=== PATIENT | female | born 1985 | race Caucasian/White ===

== ENCOUNTER 2016-09-01 19:43 | Emergency (ER) | payer MEDICAID ==
[2016-09-01] MEDS ORDERED: IPRATROPIUM/ALBUTEROL 0.5-2.5 MG/3 ML AMPUL NEB ONE (19:51)
--- NOTE | 2016-09-01 19:53 | ER Document Report ---
ED Medical Screen (RME) - General Stated Complaint: FEVER/DIFFICULTY BREATHING Mode of Arrival: Ambulatory Information source: Patient Notes: She presents to the emergency department with complaints of cough shortness of breath chest pain when she coughs. Patient also reports fever. Reports fever on Saturday seemed to get better then returned on Saturday. Patient does have a history of asthma. Denies vomiting diarrhea. SOB with ambulation, no wheeze. I have greeted and performed a rapid initial assessment of this patient. A comprehensive ED assessment and evaluation of the patient, analysis of test results and completion of the medical decision making process will be conducted by additional ED providers. TRAVEL OUTSIDE OF THE [place] IN LAST 30 DAYS: No - Related Data Allergies/Adverse Reactions: ibuprofen [From Motrin] Allergy (Mild, Verified 07/29/15 07:58) Past Medical History - Past Medical History Cardiac Medical History: Reports: Hx Hypertension Denies: Hx Coronary Artery Disease, Hx Heart Attack Pulmonary Medical History: Reports: Hx Asthma, Hx Bronchitis, Hx Pneumonia - as a child Denies: Hx COPD Neurological Medical History: Denies: Hx Cerebrovascular Accident, Hx Seizures Musculoskeltal Medical History: Denies Hx Arthritis Skin Medical History: Reports Hx Cellulitis Psychiatric Medical History: Reports: Hx Depression Past Surgical History: Reports: Hx Cholecystectomy - Immunizations Immunizations up to date: Yes Hx Diphtheria, Pertussis, Tetanus Vaccination: Yes
[2016-09-01 20:11] LABS: ABSOLUTE BASOPHILS # (AUTO) 0.1 10^3/uL (0.0-0.2); ABSOLUTE EOSINOPHILS # (AUTO) 0.1 10^3/uL (0.0-0.6); ABSOLUTE LYMPHOCYTES (AUTO) 2.9 10^3/uL (0.5-4.7); ABSOLUTE MONOCYTES (AUTO) 0.9 10^3/uL (0.1-1.4); ABSOLUTE NEUT (AUTO) 7.5 10^3/uL (1.7-8.2); BASOPHILS % (AUTO) 0.7 % (0-2); HEMATOCRIT 43.1 % (36.0-47.0); HEMOGLOBIN 14.4 g/dL (12.0-15.5); HGB HCT DIFFERENCE 0.1; LYMPHOCYTES % (AUTO) 25.2 % (13-45); MEAN CORPUSCULAR HEMOGLOBIN 27.7 pg (27.0-33.4); MEAN CORPUSCULAR HGB CONC 33.4 g/dL (32.0-36.0); MEAN CORPUSCULAR VOLUME 83 fl (80-97); MONOCYTES % (AUTO) 7.7 % (3-13); RED CELL DISTRIBUTION WIDTH 13.9 % (11.5-14.0); SEGMENTED NEUTROPHILS % (AUTO) 65.4 % (42-78); WHITE BLOOD COUNT 11.4 10^3/uL (4.0-10.5)
[2016-09-01 20:25] LABS: ALANINE AMINOTRANSFERASE 34 U/L (9-52); ALBUMIN 4.3 g/dL (3.5-5.0); ALKALINE PHOSPHATASE 93 U/L (38-126); ANION GAP 13 (5-19); ASPARTATE AMINO TRANSFERASE 24 U/L (14-36); BILIRUBIN,TOTAL 0.7 mg/dL (0.2-1.3); BLOOD UREA NITROGEN 12 mg/dL (7-20); CALCIUM 9.4 mg/dL (8.4-10.2); CARBON DIOXIDE 23 mmol/L (22-30); CHLORIDE 105 mmol/L (98-107); CREATININE RESULT 0.84 mg/dL (0.52-1.25); GLUCOSE 103 mg/dL (75-110); POTASSIUM 4.1 mmol/L (3.6-5.0); SODIUM 140.9 mmol/L (137-145); TOTAL PROTEIN 7.2 g/dL (6.3-8.2)
[2016-09-01 21:24] VITALS: BP 143/87
[2016-09-01] MEDS ORDERED: BENZONATATE 100 MG CAPSULE PO ONE (21:25)
--- NOTE | 2016-09-01 21:25 | ER Document Report ---
ED Respiratory Problem - General Chief Complaint: Breathing Difficulty Stated Complaint: FEVER/DIFFICULTY BREATHING Time seen by provider: 21:22 Mode of Arrival: Ambulatory Information source: Patient TRAVEL OUTSIDE OF THE [place] IN LAST 30 DAYS: No - HPI Patient complains to provider of: Cough, Short of breath Onset: Other - 4 days Duration: Worse/persistent Initiating Event: URI Quality of pain: Achy Severity: Mild Pain Level: 2 Context: Hx asthma Short of Breath: Mild Chest pain/discomfort: Tightness Cough: Productive Sputum amount: Small Sputum color: Green Sputum consistency: Mucoid Associated symptoms: Congestion, Cough, Fever, Short of breath, Wheezing Similar symptoms previously: Yes Recently seen / treated by doctor: No Notes: Patient is a 30-year-old female presenting to the emergency room complaining of fever and productive cough 4 days, fever was 102 earlier today, cough is productive of greenish colored mucus, today she felt chest tightness as well, with difficulty breathing, states she has an albuterol inhaler at home as she has a history of asthma but does not have any nebulizer solution for her machine , patient reports several sick contacts in her family recently as well - Related Data Allergies/Adverse Reactions: ibuprofen [From Motrin] Allergy (Mild, Verified 07/29/15 07:58) Past Medical History - General Information source: Patient - Social History Smoking Status: Never Smoker Chew tobacco use (# tins/day): No Frequency of alcohol use: Rare Drug Abuse: None Family History: Reviewed & Not Pertinent Patient has suicidal ideation: No Patient has homicidal ideation: No - Past Medical History Cardiac Medical History: Reports: Hx Hypertension Denies: Hx Coronary Artery Disease, Hx Heart Attack Pulmonary Medical History: Reports: Hx Asthma, Hx Bronchitis, Hx Pneumonia - as a child Denies: Hx COPD Neurological Medical History: Denies: Hx Cerebrovascular Accident, Hx Seizures Renal/ Medical History: Denies: Hx Peritoneal Dialysis Musculoskeltal Medical History: Denies Hx Arthritis Skin Medical History: Reports Hx Cellulitis Psychiatric Medical History: Reports: Hx Depression Past Surgical History: Reports: Hx Cholecystectomy - Immunizations Immunizations up to date: Yes Hx Diphtheria, Pertussis, Tetanus Vaccination: Yes Hx Pneumococcal Vaccination: 05/30/12 Review of Systems - Review of Systems Constitutional: Fever EENT: No symptoms reported Cardiovascular: No symptoms reported Respiratory: See HPI Gastrointestinal: No symptoms reported Genitourinary: No symptoms reported Female Genitourinary: No symptoms reported Musculoskeletal: No symptoms reported Skin: No symptoms reported Hematologic/Lymphatic: No symptoms reported Neurological/Psychological: No symptoms reported -: Yes All other systems reviewed and negative Physical Exam - Vital signs Vitals: Temp Pulse Resp BP Pulse Ox 99.7 F 123 H 26 H 152/93 H 95 09/01/16 19:48 09/01/16 19:48 09/01/16 19:48 09/01/16 19:48 09/01/16 19:48 Interpretation: Normal - General General appearance: Appears well, Alert - HEENT Head: Normocephalic, Atraumatic Eyes: Normal Pupils: PERRL - Respiratory Respiratory status: No respiratory distress Chest status: Nontender Breath sounds: Normal Chest palpation: Normal - Cardiovascular Rhythm: Regular Heart sounds: Normal auscultation Murmur: No - Abdominal Inspection: Normal Distension: No distension Bowel sounds: Normal Tenderness: Nontender Organomegaly: No organomegaly - Back Back: Normal, Nontender - Extremities General upper extremity: Normal inspection, Nontender, Normal color, Normal ROM , Normal temperature General lower extremity: Normal inspection, Nontender, Normal color, Normal ROM , Normal temperature, Normal weight bearing. No: Saige's sign - Neurological Neuro grossly intact: Yes Cognition: Normal Orientation: AAOx4 Radha Coma Scale Eye Opening: Spontaneous Grant Coma Scale Verbal: Oriented Grant Coma Scale Motor: Obeys Commands Grant Coma Scale Total: 15 Speech: Normal Motor strength normal: LUE, RUE, LLE, RLE Sensory: Normal - Psychological Associated symptoms: Normal affect, Normal mood - Skin Skin Temperature: Warm Skin Moisture: Dry Skin Color: Normal Course - Re-evaluation Re-evalutation: 09/01/16 21:24 Lab and imaging findings were discussed with patient at bedside, symptoms are consistent with viral upper respiratory illness, she will be given a prescription for albuterol nebulizer treatments as well as cough suppressant medication, advised to follow-up with her primary care provider or return if symptoms worsen, patient acknowledges understanding and agreement with this plan - Vital Signs Vital signs: Temp Pulse Resp BP Pulse Ox 99.7 F 123 H 26 H 152/93 H 95 09/01/16 19:48 09/01/16 19:48 09/01/16 19:48 09/01/16 19:48 09/01/16 19:48 - Laboratory Result Diagrams: 09/01/16 19:56 09/01/16 19:56 Laboratory results interpreted by me: 09/01/16 19:56 WBC 11.4 H - Diagnostic Test Radiology reviewed: Image reviewed, Reports reviewed Discharge - Discharge Clinical Impression: Viral upper respiratory illness Condition: Stable Disposition: HOME, SELF-CARE Instructions: Upper Respiratory Illness ([facility]), Viral Syndrome ([facility]), Fever ([facility] ) Additional Instructions: Follow up with your primary care provider in one to 2 days. Return to the emergency room immediately if symptoms worsen or any additional concerns. Prescriptions: Benzonatate [Tessalon Perle 100 mg Capsule] 100 mg PO Q8HP PRN #40 cap PRN Reason: Albuterol Sulfate [Albuterol Sulfate 2.5mg/3 mL] 1 vial [facility] Q4 PRN #30 vial PRN Reason:
== END 2016-09-01 21:25 | disposition home or self-care (01) ==
LOC: ER 19:43
DX: J06.9 Acute upper respiratory infection, unspecified (principal); R50.9 Fever, unspecified; R06.02 Shortness of breath; R06.00 Dyspnea, unspecified; I10 Essential (primary) hypertension; Z90.49 Acquired absence of other specified parts of digestive tract; Z88.6 Allergy status to analgesic agent
CPT/HCPCS: 94640; 99285; 36415; 84703; 85025; 80053; 71020; J7620

== ENCOUNTER 2016-09-07 04:45 | Emergency (ER) | payer MEDICAID ==
[2016-09-07] MEDS ORDERED: IPRATROPIUM/ALBUTEROL 0.5-2.5 MG/3 ML AMPUL NEB ONE ×2 (06:31→07:38)
--- NOTE | 2016-09-07 06:36 | ER Document Report ---
ED General - General Chief Complaint: Breathing Difficulty Stated Complaint: DIFFICULTY BREATHING Mode of Arrival: Ambulatory Information source: Patient, [facility] Records Notes: 30-year-old female presents with complaints of cough shortness of breath and body aches. Patient notes that her cough initially started one half weeks ago was taken productive at that time was seen here and started on Tessalon Perles and albuterol, patient notes her cough improved and is now a dry cough with intermittent sticky green sputum. Patient admits to intermittent fevers TRAVEL OUTSIDE OF THE [place] IN LAST 30 DAYS: No - HPI Onset: Last week Onset/Duration: Intermittent Quality of pain: Achy Severity: Mild Pain Level: 1 Associated symptoms: Nonproductive cough, Productive cough, Fever Exacerbated by: Denies Relieved by: Denies Similar symptoms previously: Yes Recently seen / treated by doctor: Yes - Related Data Allergies/Adverse Reactions: ibuprofen [From Motrin] Allergy (Mild, Verified 07/29/15 07:58) Past Medical History - Social History Smoking Status: Never Smoker Cigarette use (# per day): No Chew tobacco use (# tins/day): No Smoking Education Provided: No Frequency of alcohol use: Rare Drug Abuse: None Family History: Reviewed & Not Pertinent Patient has suicidal ideation: No Patient has homicidal ideation: No - Past Medical History Cardiac Medical History: Reports: Hx Hypertension Denies: Hx Coronary Artery Disease, Hx Heart Attack Pulmonary Medical History: Reports: Hx Asthma, Hx Bronchitis, Hx Pneumonia - as a child Denies: Hx COPD Neurological Medical History: Denies: Hx Cerebrovascular Accident, Hx Seizures Renal/ Medical History: Denies: Hx Peritoneal Dialysis Musculoskeltal Medical History: Denies Hx Arthritis Skin Medical History: Reports Hx Cellulitis Psychiatric Medical History: Reports: Hx Depression Past Surgical History: Reports: Hx Cholecystectomy - Immunizations Immunizations up to date: Yes Hx Diphtheria, Pertussis, Tetanus Vaccination: Yes Hx Pneumococcal Vaccination: 05/30/12 Review of Systems - Review of Systems Notes: REVIEW OF SYSTEMS: CONSTITUTIONAL : Admits fever EENT: Denies eye, ear, throat, or mouth pain or symptoms. Denies nasal or sinus congestion or discharge. Denies throat, tongue, or mouth swelling or difficulty swallowing. CARDIOVASCULAR: Denies chest pain. Denies palpitations or racing or irregular heart beat. Denies ankle edema. RESPIRATORY: Admits cough GASTROINTESTINAL: Denies abdominal pain or distention. Denies nausea, vomiting , or diarrhea. Denies blood in vomitus, stools, or per rectum. Denies black, tarry stools. Denies constipation. GENITOURINARY: Denies difficulty urinating, painful urination, burning, frequency, blood in urine, or discharge. FEMALE GENITOURINARY: Denies vaginal bleeding, heavy or abnormal periods, irregular periods. Denies vaginal discharge or odor. MUSCULOSKELETAL: Denies back or neck pain or stiffness. Denies joint pain or swelling. SKIN: Denies rash, lesions or sores. HEMATOLOGIC : Denies easy bruising or bleeding. LYMPHATIC: Denies swollen, enlarged glands. NEUROLOGICAL: Denies confusion or altered mental status. Denies passing out or loss of consciousness. Denies dizziness or lightheadedness. Denies headache. Denies weakness or paralysis or loss of use of either side. Denies problems with gait or speech. Denies sensory loss, numbness, or tingling. Denies seizures. PSYCHIATRIC: Denies anxiety or stress. Denies depression, suicidal ideation, or homicidal ideation. ALL OTHER SYSTEMS REVIEWED AND NEGATIVE. Dictation was performed using [employer] voice recognition software PHYSICAL EXAMINATION: GENERAL: Well-appearing, well-nourished and in no acute distress. HEAD: Atraumatic, normocephalic. EYES: Pupils equal round and reactive to light, extraocular movements intact, conjunctiva are normal. ENT: Nares patent, oropharynx clear without exudates. Moist mucous membranes. NECK: Normal range of motion, supple without lymphadenopathy LUNGS: Rhonchorous right upper lobe HEART: Regular rate and rhythm without murmurs ABDOMEN: Soft, nontender, nondistended abdomen. No guarding, no rebound. No masses appreciated. Female : deferred Musculoskeletal: Normal range of motion, no pitting or edema. No cyanosis. NEUROLOGICAL: Cranial nerves grossly intact. Normal speech, normal gait. Normal sensory, motor exams PSYCH: Normal mood, normal affect. SKIN: Warm, Dry, normal turgor, no rashes or lesions noted. Physical Exam - Vital signs Vitals: Temp Pulse Resp BP Pulse Ox 98.4 F 102 H 20 147/103 H 97 09/07/16 05:01 09/07/16 05:01 09/07/16 05:01 09/07/16 05:01 09/07/16 05:01 Course - Re-evaluation Re-evalutation: 09/07/16 06:35 Chest x-ray influenza are pending, patient will be given yet another DuoNeb here. Given length of symptoms I believe a course of steroids versus antibiotics would be appropriate depending on imaging 09/07/16 07:33 Patient looks well x-ray notes no acute abnormality however given the length of patient's productive cough I will start on antibiotics and steroids with close follow-up I have very low risk for DVT or PE After performing a Medical Screening Examination, I estimate there is LOW risk for ACUTE CORONARY SYNDROME, RESPIRATORY FAILURE, SEPSIS OR MENINGITIS, thus I consider the discharge disposition reasonable. The patient and I have discussed the diagnosis and risks, and we agree with discharging home with close follow- up. We also discussed returning to the Emergency Department immediately if new or worsening symptoms occur. We have discussed the symptoms which are most concerning (e.g., changing or worsening pain, trouble swallowing or breathing, neck stiffness, fever) that necessitate immediate return. - Vital Signs Vital signs: Temp Pulse Resp BP Pulse Ox 98.4 F 102 H 20 147/103 H 97 09/07/16 05:01 09/07/16 05:01 09/07/16 05:01 09/07/16 05:01 09/07/16 05:01 - Diagnostic Test Radiology reviewed: Image reviewed, Reports reviewed Discharge - Discharge Clinical Impression: Productive cough Condition: Stable Disposition: HOME, SELF-CARE Instructions: Pneumonia ([facility]) Prescriptions: Levofloxacin [Levaquin 750 mg Tablet] 750 mg PO DAILY #5 tablet Prednisone [Deltasone 20 mg Tablet] 3 tab PO DAILY 5 Days Referrals: CASSIE SHARPE DO [Primary Care Provider] - Follow up in 3-5 days
[2016-09-07] MEDS ORDERED: PREDNISONE 20 MG TABLET PO ONE (07:38)
[2016-09-07 08:14] VITALS: BP 138/66
== END 2016-09-07 08:18 | disposition home or self-care (01) ==
LOC: ER 04:45
DX: R05 Cough (principal); R06.00 Dyspnea, unspecified; R06.02 Shortness of breath; M79.1 Myalgia; I10 Essential (primary) hypertension; Z90.49 Acquired absence of other specified parts of digestive tract
CPT/HCPCS: 94640 ×2; 99285; 87804; 71020; J7512; J7620

== ENCOUNTER 2019-01-25 14:38 | Emergency (ER) | payer SELFPAY ==
--- NOTE | 2019-01-25 16:05 | ER Document Report ---
ED Medical Screen (RME) - General Chief Complaint: Swelling of Lower Extremity Stated Complaint: LEG PAIN Time Seen by Provider: 01/25/19 15:55 Primary Care Provider: CASSIE SHARPE DO [Primary Care Provider] - Follow up as needed TRAVEL OUTSIDE OF THE [place] IN LAST 30 DAYS: No - HPI Notes: 01/25/19 16:00 Patient is a 33-year-old female with a history of injury and skin grafting to her left lower leg who presents complaining of noticing cloudy drainage from the anterior mid corcoran area over the past 1 day, but had clear discharge x2-3 days. Patient states that she was running a fever yesterday. She also has redness and pain to her dorsal foot without any break in the skin in that area which began today. She is able to eat and drink without difficulty otherwise. She is urinating normally. Patient states that she normally has swelling to her bilateral lower extremities. She has no posterior leg pain. No h/o DVT. Denies DAVIS, fever, neck pain, URI, CP, SOB, Abd pain, dysuria, back pain, or rash. I have treated and performed a rapid initial assessment of this patient. A comprehensive ED assessment and evaluation of the patient, analysis of test results and completion of medical decision making process will be conducted by additional ED providers. PHYSICAL EXAMINATION: GENERAL: Well-appearing, well-nourished and in no acute distress. A&Ox4. Answers questions appropriately. LUNGS: Breath sounds clear to auscultation bilaterally and equal. No wheezes rales or rhonchi. HEART: Regular rate and rhythm without murmurs, rubs, gallops. Extremities: 1-2+ pitting edema b/l LE's, left slightly more than the right more so in the foot. The foot also has an area of erythema, warmth, and tenderness. Pulse 2+. The left lower leg has clear to cloudy discharge from old surgical scar w/o obvious fluctuance or abscess. NEUROLOGICAL: Normal speech, normal gait. PSYCH: Normal mood, normal affect. - Related Data Allergies/Adverse Reactions: ibuprofen [From Motrin] Allergy (Mild, Verified 01/25/19 14:40) Past Medical History - Past Medical History Cardiac Medical History: Reports: Hx Hypertension Denies: Hx Coronary Artery Disease, Hx Heart Attack Pulmonary Medical History: Reports: Hx Asthma, Hx Bronchitis, Hx Pneumonia - as a child Denies: Hx COPD Neurological Medical History: Denies: Hx Cerebrovascular Accident, Hx Seizures Renal/ Medical History: Denies: Hx Peritoneal Dialysis Musculoskeltal Medical History: Denies Hx Arthritis Skin Medical History: Reports Hx Cellulitis Psychiatric Medical History: Reports: Hx Depression Past Surgical History: Reports: Hx Cholecystectomy - Immunizations Immunizations up to date: Yes Hx Diphtheria, Pertussis, Tetanus Vaccination: Yes Physical Exam - Vital signs Vitals: Temp Pulse Resp BP Pulse Ox 98.8 F 103 H 18 159/118 H 96 01/25/19 14:48 01/25/19 14:48 01/25/19 14:48 01/25/19 14:48 01/25/19 14:48 Course - Vital Signs Vital signs: Temp Pulse Resp BP Pulse Ox 97.9 F 115 H 18 117/65 97 01/25/19 15:09 01/25/19 15:09 01/25/19 15:09 01/25/19 15:09 01/25/19 15:09 Doctor's Discharge - Discharge Referrals: CASSIE SHARPE DO [Primary Care Provider] - Follow up as needed
[2019-01-25 16:33] LABS: ABSOLUTE MONOCYTES (AUTO) 0.7 10^3/uL (0.1-1.4); ABSOLUTE NEUT (AUTO) 5.7 10^3/uL (1.7-8.2); BASOPHILS % (AUTO) 0.4 % (0-2); EOSINOPHILS % (AUTO) 0.6 % (0-6); HEMATOCRIT 42.2 % (36.0-47.0); HEMOGLOBIN 14.4 g/dL (12.0-15.5); LYMPHOCYTES % (AUTO) 13.5 % (13-45); MEAN CORPUSCULAR HGB CONC 34.1 g/dL (32.0-36.0); MEAN CORPUSCULAR VOLUME 85 fl (80-97); MONOCYTES % (AUTO) 9.4 % (3-13); PLATELET COUNT 246 10^3/uL (150-450); RED BLOOD COUNT 4.95 10^6/uL (3.72-5.28); RED CELL DISTRIBUTION WIDTH 14.8 % (11.5-14.0); SEGMENTED NEUTROPHILS % (AUTO) 76.1 % (42-78); TOTAL CELLS COUNTED % (AUTO) 100 %; WHITE BLOOD COUNT 7.5 10^3/uL (4.0-10.5)
[2019-01-25 16:54] LABS: ANION GAP 7 (5-19); BLOOD UREA NITROGEN 14 mg/dL (7-20); CALCIUM 9.4 mg/dL (8.4-10.2); CARBON DIOXIDE 29 mmol/L (22-30); CHLORIDE 105 mmol/L (98-107); GLUCOSE 98 mg/dL (75-110); POTASSIUM 4.3 mmol/L (3.6-5.0); SODIUM 141.4 mmol/L (137-145)
[2019-01-25] MEDS ORDERED: CLINDAMYCIN PHOSPHATE INJ 300 MG/2 ML SDV IM ONE ×2 (18:59→19:41)
[2019-01-25] MEDS ORDERED: CLINDAMYCIN HCL 150 MG CAPSULE PO ONE (19:41)
--- NOTE | 2019-01-25 20:13 | ER Document Report ---
ED General - General Chief Complaint: Swelling of Lower Extremity Stated Complaint: LEG PAIN Time Seen by Provider: 01/25/19 15:55 Primary Care Provider: CASSIE SHARPE DO [NO LOCAL MD] - Follow up as needed TRAVEL OUTSIDE OF THE [place] IN LAST 30 DAYS: No - HPI Notes: Patient is a 33-year-old female presents emergency department for evaluation of drainage from her left leg. She has a history of a hematoma that had required wound care and skin grafting. She states that over the last 3 days she has had some drainage from the area. At first it sounded serous, now she seems to have purulent drainage. She states 24 hours ago she did have a fever. She is had no nausea or vomiting. She denies any new injury to the area. She has permanent discoloration in that region, which she states is unchanged. While waiting here in the emergency department, however, she did notice some splotchy redness proximal to this wound. She states this is new. She also states that the s welling in her foot is not new, but she has noticed "red dots" that were more concerning to her as well. - Related Data Allergies/Adverse Reactions: ibuprofen [From Motrin] Allergy (Mild, Verified 01/25/19 14:40) Past Medical History - General Information source: Patient - Social History Smoking Status: Former Smoker Frequency of alcohol use: None Drug Abuse: None Family History: Reviewed & Not Pertinent Patient has suicidal ideation: No Patient has homicidal ideation: No - Past Medical History Cardiac Medical History: Reports: Hx Hypertension Denies: Hx Coronary Artery Disease, Hx Heart Attack Pulmonary Medical History: Reports: Hx Asthma, Hx Bronchitis, Hx Pneumonia - as a child Denies: Hx COPD Neurological Medical History: Denies: Hx Cerebrovascular Accident, Hx Seizures Renal/ Medical History: Denies: Hx Peritoneal Dialysis Musculoskeletal Medical History: Denies Hx Arthritis Skin Medical History: Reports Hx Cellulitis Psychiatric Medical History: Reports: Hx Depression Past Surgical History: Reports: Hx Cholecystectomy, Hx Orthopedic Surgery - left lower leg - Immunizations Immunizations up to date: Yes Hx Diphtheria, Pertussis, Tetanus Vaccination: Yes Hx Pneumococcal Vaccination: 05/30/12 Review of Systems - Review of Systems Constitutional: See HPI EENT: No symptoms reported Cardiovascular: No symptoms reported Respiratory: No symptoms reported Gastrointestinal: No symptoms reported Genitourinary: No symptoms reported Musculoskeletal: See HPI Skin: See HPI Neurological/Psychological: No symptoms reported Physical Exam - Vital signs Vitals: Temp Pulse Resp BP Pulse Ox 98.8 F 103 H 18 159/118 H 96 01/25/19 14:48 01/25/19 14:48 01/25/19 14:48 01/25/19 14:48 01/25/19 14:48 - Notes Notes: Vital signs reviewed, please refer to chart. Head is normocephalic, atraumatic. Pupils equal round, reactive to light. Neck is supple without meningismus. Heart is regular rate and rhythm. Lungs are clear to auscultation bilaterally. Abdomen is soft, nontender, normoactive bowel sounds throughout. Extremities without cyanosis, clubbing. Posterior calves are nontender. Examination of the left lower extremity yields 3+ edema, worse in the foot. She does have what appears to be petechia noted on the anterior aspect of the foot. She has a 3 cm scabbed wound to the anterior corcoran, the surrounding chronic appearing ecchymosis. She has 2+ pitting edema throughout the pretibial region. I do not appreciate any fluctuance at this time. She does have some diffuse, not well demarcated erythema tracking from the most cephalad aspect of the wound into the medial aspect of the knee. Course - Re-evaluation Re-evalutation: 01/25/19 20:08 Patient presents emergency department for evaluation. She had initial laboratory investigations and orders as placed through triage. On arrival the patient was tachycardic. My strong suspicion is this is secondary to deconditioning and heat. Her heart rate at the time of my evaluation was 80. Laboratory investigations revealed no significant leukocytosis. She denies any signs of DVT. Differential at this time would be cellulitis secondary to this wound, likely staph or strep. Patient was administered IM clindamycin, given a pill to go home with tonight. She is to follow-up closely with primary care. Unfortunately she does not see primary care at this time, [facility] She is also to follow-up with Dr. Ritter, who is down her wound care in the past. She voiced understanding to this. She was given strict instructions in regards to returning, including fever greater than 24 hours, Nausea or vomiting, increased red streaking. She voiced understanding to this and was discharged. 01/25/19 20:40 Nursing at discharge that the patient's blood pressure was markedly elevated. I did go back in to reevaluate the patient. We discussed elevated blood pressure, the risk factors associated with it, the need for this to be followed up. She voiced understanding. She was visibly chilled, and I did check her temperature. She was 102.1 orally. She was administered Tylenol. We did discuss possible options. She clearly has a source of infection. Her heart rate is in the 90s. She does not have a leukocytosis at this point, but argument could certainly be made for admission to the hospital. The patient states she does not want to be admitted at this time. She would rather do a trial of outpatient antibiotics at home. She was given strict instructions that if her fever continue tomorrow afternoon, she develops increased redness, vomiting, or any other new concerning symptoms of any time, she needs to return immediately to the emergency department for evaluation. She voiced understanding to this and was discharged. - Vital Signs Vital signs: Temp Pulse Resp BP Pulse Ox 99.4 F 98 18 220/110 H 99 01/25/19 20:31 01/25/19 20:31 01/25/19 20:31 01/25/19 20:31 01/25/19 20:31 - Laboratory Result Diagrams: 01/25/19 16:12 01/25/19 16:12 Laboratory results interpreted by me: 01/25/19 16:12 RDW 14.8 H Discharge - Discharge Clinical Impression: Cellulitis Qualifiers: Site of cellulitis: extremity Site of cellulitis of extremity: lower extremity Laterality: left Qualified Code(s): L03.116 - Cellulitis of left lower limb Condition: Stable Disposition: HOME, SELF-CARE Instructions: Cellulitis ([facility]) Additional Instructions: Take antibiotic as prescribed, starting with the 1 pill tonight before bed. Fill your prescription first thing tomorrow and take it all as directed. Follow-up with Dr. Ritter in primary care. If you develop fever longer than 24 hours, nausea and vomiting, increased redness, or any other new concerning symptoms, return immediately to the emergency department for reevaluation. Prescriptions: Clindamycin HCl 300 mg PO TID #30 capsule Referrals: CASSIE SHARPE DO [NO LOCAL MD] - Follow up as needed
[2019-01-25 20:32] VITALS: BP 220/110
[2019-01-25] MEDS ORDERED: ACETAMINOPHEN 325 MG TABLET PO ONE (20:37)
[2019-01-25] MEDS ORDERED: ACETAMINOPHEN 325 MG TABLET ONE (20:38)
== END 2019-01-25 20:42 | disposition home or self-care (01) ==
LOC: ER 14:38
DX: L03.116 Cellulitis of left lower limb (principal); I10 Essential (primary) hypertension; J45.909 Unspecified asthma, uncomplicated; R00.0 Tachycardia, unspecified; Z98.890 Other specified postprocedural states; Z88.8 Allergy status to other drugs, medicaments and biological substances; Z87.891 Personal history of nicotine dependence; R68.83 Chills (without fever)
CPT/HCPCS: 99283; 96372; 36415; 85025; 80048; J3490

== ENCOUNTER 2019-01-26 14:02 | Observation (INO) | payer SELFPAY ==
--- NOTE | 2019-01-26 15:48 | ER Document Report ---
ED Medical Screen (RME) - General Chief Complaint: Leg Swelling Stated Complaint: LEFT LEG PAIN Time Seen by Provider: 01/26/19 15:43 Primary Care Provider: EBONI STONE [Primary Care Provider] - Follow up as needed Mode of Arrival: Ambulatory Information source: Patient Notes: 33-year-old female presented to ED for complaint of increase in pain and redness to her left leg. She states she was seen yesterday by 1 of the providers given some IV and p.o. antibiotics and that her leg is getting more swollen and red overnight. Patient is alert oriented respirations regular and unlabored speaking in full sentences. She does have several red petechial areas to the left leg as well as 3+ edema. It is very tender to palpation. Patient is alert oriented respirations regular and unlabored speaking in full sentences. I have greeted and performed a rapid initial assessment of this patient. A comprehensive ED assessment and evaluation of the patient, analysis of test results and completion of medical decision making process will be conducted by an additional ED providers. Dictation of this chart was performed using voice recognition software; therefore, there may be some unintended grammatical errors. TRAVEL OUTSIDE OF THE [place] IN LAST 30 DAYS: No - Related Data Allergies/Adverse Reactions: ibuprofen [From Motrin] Allergy (Mild, Verified 01/26/19 14:22) Past Medical History - Past Medical History Cardiac Medical History: Reports: Hx Hypertension Denies: Hx Coronary Artery Disease, Hx Heart Attack Pulmonary Medical History: Reports: Hx Asthma, Hx Bronchitis, Hx Pneumonia - as a child Denies: Hx COPD Neurological Medical History: Denies: Hx Cerebrovascular Accident, Hx Seizures Renal/ Medical History: Denies: Hx Peritoneal Dialysis Musculoskeltal Medical History: Denies Hx Arthritis Skin Medical History: Reports Hx Cellulitis Psychiatric Medical History: Reports: Hx Depression Past Surgical History: Reports: Hx Cholecystectomy, Hx Orthopedic Surgery - left lower leg - Immunizations Immunizations up to date: Yes Hx Diphtheria, Pertussis, Tetanus Vaccination: Yes Physical Exam - Vital signs Vitals: Temp Pulse Resp BP Pulse Ox 98.9 F 98 18 182/94 H 96 01/26/19 15:11 01/26/19 15:11 01/26/19 15:11 01/26/19 15:11 01/26/19 15:11 Course - Vital Signs Vital signs: Temp Pulse Resp BP Pulse Ox 98.9 F 98 18 182/94 H 96 01/26/19 15:11 01/26/19 15:11 01/26/19 15:11 01/26/19 15:11 01/26/19 15:11 Doctor's Discharge - Discharge Referrals: LOCALMD,NO [Primary Care Provider] - Follow up as needed
[2019-01-26 16:31] LABS: ABSOLUTE LYMPHOCYTES (AUTO) 1.7 10^3/uL (0.5-4.7); ABSOLUTE MONOCYTES (AUTO) 0.8 10^3/uL (0.1-1.4); ABSOLUTE NEUT (AUTO) 4.5 10^3/uL (1.7-8.2); BASOPHILS % (AUTO) 0.3 % (0-2); EOSINOPHILS % (AUTO) 0.7 % (0-6); HEMATOCRIT 44.2 % (36.0-47.0); HEMOGLOBIN 14.8 g/dL (12.0-15.5); LYMPHOCYTES % (AUTO) 23.9 % (13-45); MEAN CORPUSCULAR HEMOGLOBIN 28.7 pg (27.0-33.4); MEAN CORPUSCULAR HGB CONC 33.5 g/dL (32.0-36.0); MEAN CORPUSCULAR VOLUME 86 fl (80-97); MONOCYTES % (AUTO) 11.3 % (3-13); PLATELET COUNT 240 10^3/uL (150-450); RED BLOOD COUNT 5.15 10^6/uL (3.72-5.28); RED CELL DISTRIBUTION WIDTH 14.7 % (11.5-14.0); SEGMENTED NEUTROPHILS % (AUTO) 63.8 % (42-78); TOTAL CELLS COUNTED % (AUTO) 100 %
[2019-01-26 16:41] LABS: APPEARANCE,URINE CLOUDY; BILIRUBIN,URINE NEGATIVE (NEGATIVE); COLOR,URINE YELLOW; GLUCOSE, URINE NEGATIVE (NEGATIVE); KETONES,URINE NEGATIVE (NEGATIVE); LEUKOCYTE ESTERASE,URINE NEGATIVE (NEGATIVE); NITRITE,URINE NEGATIVE (NEGATIVE); PROTEIN,URINE 30 mg/dL (NEGATIVE); URINE SPECIFIC GRAVITY 1.025
[2019-01-26 16:42] LABS: AMORPHOUS SEDIMENT,URINE TRACE /HPF
[2019-01-26 16:58] LABS: ALANINE AMINOTRANSFERASE 31 U/L (9-52); ALBUMIN 4.1 g/dL (3.5-5.0); ALKALINE PHOSPHATASE 100 U/L (38-126); ANION GAP 11 (5-19); ASPARTATE AMINO TRANSFERASE 27 U/L (14-36); BILIRUBIN,DIRECT 0.3 mg/dL (0.0-0.4); BILIRUBIN,TOTAL 0.5 mg/dL (0.2-1.3); BLOOD UREA NITROGEN 13 mg/dL (7-20); CALCIUM 9.3 mg/dL (8.4-10.2); CARBON DIOXIDE 27 mmol/L (22-30); CHLORIDE 103 mmol/L (98-107); GLUCOSE 89 mg/dL (75-110); POTASSIUM 4.3 mmol/L (3.6-5.0); TOTAL PROTEIN 7.5 g/dL (6.3-8.2)
--- NOTE | 2019-01-26 18:30 | ER Document Report ---
ED General - General Chief Complaint: Leg Swelling Stated Complaint: LEFT LEG PAIN Time Seen by Provider: 01/26/19 15:43 Primary Care Provider: EBONI STONE [NO LOCAL MD] - Follow up as needed Mode of Arrival: Ambulatory TRAVEL OUTSIDE OF THE [place] IN LAST 30 DAYS: No - HPI Notes: 33-year-old female to the emergency department with complaints of progressively worsening left leg redness, pain that began several days ago and has gotten worse in the past 24 hours. She states that she has had a fever measured at 101 and 102 at home predominantly at night. She was seen here yesterday for the cellulitis and was treated with clindamycin. She was told to return if her symptoms worsened. At that time there is just redness to the top of the foot but today she has redness all to the back of the calf and some to the front of the lower leg. She states that she has taken 2 doses of clindamycin today. States that she was told by the ER attending who saw her yesterday that she should return if the redness got any worse. She has an old scar to the front of her left lower leg from a skin graft that vascular surgeon in [place] performed in 2016. She does state that by vascular surgeon put in a left femoral artery stent because she had narrowing. She states that she is not on any elevated cholesterol medicine. She does not take any aspirin. She states that she does not have a history of peripheral artery disease. She reports that she is on control. She has not had recent travel. She is no history of DVT in her leg. No recent surgeries. - Related Data Allergies/Adverse Reactions: ibuprofen [From Motrin] Allergy (Mild, Verified 01/26/19 14:22) Past Medical History - General Information source: Patient - Social History Smoking Status: Never Smoker Frequency of alcohol use: None Drug Abuse: None Family History: Reviewed & Not Pertinent Patient has suicidal ideation: No Patient has homicidal ideation: No - Past Medical History Cardiac Medical History: Reports: Hx Hypertension Denies: Hx Coronary Artery Disease, Hx Heart Attack Pulmonary Medical History: Reports: Hx Asthma, Hx Bronchitis, Hx Pneumonia - as a child Denies: Hx COPD Neurological Medical History: Denies: Hx Cerebrovascular Accident, Hx Seizures Renal/ Medical History: Denies: Hx Peritoneal Dialysis Musculoskeletal Medical History: Denies Hx Arthritis Skin Medical History: Reports Hx Cellulitis Psychiatric Medical History: Reports: Hx Depression Past Surgical History: Reports: Hx Cholecystectomy, Hx Orthopedic Surgery - left lower leg - Immunizations Immunizations up to date: Yes Hx Diphtheria, Pertussis, Tetanus Vaccination: Yes Hx Pneumococcal Vaccination: 05/30/12 Review of Systems - Review of Systems Constitutional: Chills, Fever EENT: No symptoms reported Cardiovascular: denies: Chest pain, Palpitations Respiratory: denies: Cough, Short of breath Gastrointestinal: denies: Abdominal pain, Diarrhea, Nausea, Vomiting Genitourinary: denies: Burning, Frequency, Flank pain, Hematuria Musculoskeletal: Leg swelling - Left lower leg swelling Skin: Change in color - Progressively worsening redness to the left lower extre mity Hematologic/Lymphatic: denies: Blood clots, Easy bleeding, Easy bruising Neurological/Psychological: No symptoms reported -: Yes All other systems reviewed and negative Physical Exam - Vital signs Vitals: Temp Pulse Resp BP Pulse Ox 98.9 F 98 18 182/94 H 96 01/26/19 15:11 01/26/19 15:11 01/26/19 15:11 01/26/19 15:11 01/26/19 15:11 Interpretation: Hypertensive - General General appearance: Appears well In distress: None - HEENT Head: Normocephalic, Atraumatic Eyes: Normal Pupils: PERRL - Respiratory Respiratory status: No respiratory distress Chest status: Nontender Breath sounds: Normal Chest palpation: Normal - Cardiovascular Rhythm: Regular Heart sounds: Normal auscultation Murmur: No - Abdominal Inspection: Normal Distension: No distension Bowel sounds: Normal Tenderness: Nontender Organomegaly: No organomegaly - Back Back: Normal, Nontender - Extremities General upper extremity: Normal inspection, Nontender General lower extremity: Tender, Edema. No: Normal color - There is significant edema, erythema and tenderness to palpation over the left lower extremity. There is a noted 3 x 3 cm erythematous area to the dorsum of the left foot and then the erythema extends from the heel of the left foot up to the level of the popliteal fossa and wraps around to either side of the leg just below the knee. There is a chronic area of ecchymosis from where patient had skin grafting. There is a mild opening there but with no braulio purulent discharge. There is no fluctuance or evidence of abscess. With Doppler, DP pulses are intact and equal. She has 2+ pitting edema to the left lower extremity. - Neurological Neuro grossly intact: Yes Cognition: Normal Orientation: AAOx4 Radha Coma Scale Eye Opening: Spontaneous Radha Coma Scale Verbal: Oriented [place] Coma Scale Motor: Obeys Commands [place] Coma Scale Total: 15 Speech: Normal Motor strength normal: LUE, RUE, LLE, RLE Sensory: Normal - Psychological Associated symptoms: Normal affect, Normal mood - Skin Skin Temperature: Warm Skin Moisture: Dry Skin Color: Erythema - See extremity for discussion on left lower extremity erythema, edema, tenderness Course - Re-evaluation Re-evalutation: 01/26/[address] Vy Winter, ER Attending. She agrees that if patient has rapidly progressing erythema in the past 24 hours, that she likely needs admission for IV Abx. Agrees with plan to Venous Doppler. Will also have US look at her arterial supply. Noted PVL study negative for DVT. Arterial flow is reassuring. Rounded on patient. Discussed with her results. Will call hospitalist team about the patient and discuss admission for rapidly progressing cellulitic process. Spoke with Dr. Swenson, hospitalist. He would like for the patient to be admitted to Obs. He is aware of labs, rapid progression of cellulitis, hx of cellulitis to this leg. He does not want further IV ABx right now. - Vital Signs Vital signs: Temp Pulse Resp BP Pulse Ox 99.1 F 86 20 156/99 H 98 01/26/19 21:51 01/26/19 21:51 01/26/19 21:51 01/26/19 21:51 01/26/19 21:51 - Laboratory Result Diagrams: 01/26/19 16:00 01/26/19 16:00 Laboratory results interpreted by me: 01/26/19 01/26/19 16:00 16:00 RDW 14.7 H Urine Protein 30 H Urine Urobilinogen 4.0 H - Diagnostic Test Radiology reviewed: Image reviewed, Reports reviewed Radiology results interpreted by me: 01/26/19 Received call from [employer] -- negative for DVT and good arterial flow. Discharge - Discharge Clinical Impression: Left leg cellulitis Fever Qualifiers: Encounter type: initial encounter Condition: Stable Disposition: ADMITTED OBSERVATION Admitting Provider: Messi (Hospitalist) Unit Admitted: Medical Floor Referrals: LOCALMD,NO [NO LOCAL MD] - Follow up as needed
[2019-01-26] MEDS ORDERED: VANCOMYCIN HCL INJ 1000 MG VIAL IV ONE (19:05)
[2019-01-26] MEDS ORDERED: NORMAL SALINE 1000 ML 1,000 ML IV ONE ×2 (19:05→22:40)
[2019-01-26] MEDS ORDERED: MAG HYDROX/AL HYDROX/SIMETH SUSP 30 ML UDCUP PO PRN (22:44)
[2019-01-26] MEDS ORDERED: MAGNESIUM HYDROXIDE SUSP 30 ML UDCUP PO PRN (22:44)
[2019-01-26] MEDS ORDERED: IPRATROPIUM/ALBUTEROL 0.5-2.5 MG/3 ML AMPUL NEB PRN (22:44)
[2019-01-26] MEDS ORDERED: CEFTRIAXONE 2 GM/D5W RTU 2 GM/50 ML RTUPB IV ONE (23:00)
[2019-01-27] MEDS ORDERED: FUROSEMIDE INJ/PF 40 MG/4 ML SDV IV ONE (04:45)
--- NOTE | 2019-01-27 04:55 | PDOC H&P ---
History of Present Illness Admission Date/PCP: 01/26/19 22:50 Patient complains of: Left leg pain and swelling History of Present Illness: RAÚL POPE is a 33 year old female with a past medical history of morbid obesity, venous stasis and cellulitis requiring skin grafting to left lower extremity. She presents with 4 days of erythema swelling and pain to the left lower leg not preceded by trauma seen in the emergency room 48 hours ago and placed on clindamycin with little improvement she returns with increasing erythema from the foot to the knee. Imaging is unremarkable for DVT or abscess, she receives vancomycin and Rocephin and referred to the hospitalist for admission. Patient denies recent change in medications with exception to clindamycin. Past Medical History Cardiac Medical History: Reports: Hypertension Denies: Coronary Artery Disease, Myocardial Infarction Pulmonary Medical History: Reports: Asthma, Bronchitis, Pneumonia - as a child Denies: Chronic Obstructive Pulmonary Disease (COPD) Neurological Medical History: Denies: Seizures Musculoskeltal Medical History: Denies: Arthritis Psychiatric Medical History: Reports: Depression Hematology: Denies: Anemia Past Surgical History Past Surgical History: Reports: Cholecystectomy, Orthopedic Surgery - left lower leg Social History Information Source: Patient, [facility] Records Smoking Status: Never Smoker Frequency of Alcohol Use: None Hx Recreational Drug Use: No Drugs: None Hx Prescription Drug Abuse: No - Advance Directive Resuscitation Status: Full Code Family History Family History: Hypertension Parental Family History Reviewed: Yes Children Family History Reviewed: Yes Sibling(s) Family History Reviewed.: Yes Medication/Allergy Home Medications: Albuterol Sulfate [Proair HFA Inhalation Aerosol 8.5 gm MDI] 1 puff IH Q4H PRN #1 mdi 03/04/12 Budesonide/Formoterol Fumarate [Symbicort HFA 160-4.5 mcg Inhaler 6 gm] 2 puff IH Q12 06/10/14 Hydrochlorothiazide 25 mg PO DAILY 06/10/14 Lisinopril [Prinivil 5 mg Tablet] 5 mg PO DAILY 06/10/14 Duloxetine HCl [Cymbalta] 90 mg PO DAILY 04/27/15 Levothyroxine Sodium [Synthroid 0.075 mg Tablet] 0.75 mcg PO DAILY 04/27/15 Montelukast Sodium [Singulair 10 mg Tablet] 10 mg PO QHS 04/27/15 Olopatadine HCl [Pataday] 1 drop OU DAILYP PRN 04/27/15 Albuterol Sulfate [Ventolin 0.083% Neb 2.5 mg/3 mL Ampul] 1 vial NEB Q4 PRN 07/29/15 Amox Tr/Potassium Clavulanate [Augmentin "500" Tablet] 825 mg PO BID 09/02/15 Ciprofloxacin HCl [Ciloxan 0.3% Oph Ointment 3.5 gm] 1 applic TOP DAILY 01/24/16 Albuterol Sulfate [Albuterol Sulfate 2.5mg/3 mL] 1 vial IH Q4 PRN #30 vial 09/01/16 Benzonatate [Tessalon Perle 100 mg Capsule] 100 mg PO Q8HP PRN #40 cap 09/01/16 Levofloxacin [Levaquin 750 mg Tablet] 750 mg PO DAILY #5 tablet 09/07/16 Prednisone [Deltasone 20 mg Tablet] 3 tab PO DAILY 5 Days tablet 09/07/16 Clindamycin HCl 300 mg PO TID #30 capsule 01/25/19 Allergies/Adverse Reactions: ibuprofen [From Motrin] Allergy (Mild, Verified 01/26/19 14:22) Review of Systems Constitutional: ABSENT: chills, fever(s), headache(s), weight gain, weight loss Eyes: ABSENT: visual disturbances Ears: ABSENT: hearing changes Cardiovascular: ABSENT: chest pain, dyspnea on exertion, edema, orthropnea, palpitations Respiratory: ABSENT: cough, hemoptysis Gastrointestinal: ABSENT: abdominal pain, constipation, diarrhea, hematemesis, hematochezia, nausea, vomiting Genitourinary: ABSENT: dysuria, hematuria Musculoskeletal: ABSENT: joint swelling Integumentary: ABSENT: rash, wounds Neurological: ABSENT: abnormal gait, abnormal speech, confusion, dizziness, focal weakness, syncope Psychiatric: ABSENT: anxiety, depression, homidical ideation, suicidal ideation Endocrine: ABSENT: cold intolerance, heat intolerance, polydipsia, polyuria Hematologic/Lymphatic: ABSENT: easy bleeding, easy bruising Physical Exam Vital Signs: Temp Pulse Resp BP Pulse Ox 98.5 F 82 18 151/96 H 96 01/27/19 00:33 01/27/19 00:33 01/27/19 00:33 01/27/19 00:33 01/27/19 00:33 Intake & Output 01/25/19 01/26/1919 11:59 11:59 11:59 Intake Total 1152 Balance 1152 Weight 176.9 kg General appearance: PRESENT: no acute distress, morbidly obese Head exam: PRESENT: atraumatic, normocephalic Eye exam: PRESENT: conjunctiva pink, EOMI, PERRLA. ABSENT: scleral icterus Ear exam: PRESENT: normal external ear exam Mouth exam: PRESENT: moist, tongue midline Neck exam: ABSENT: carotid bruit, JVD, lymphadenopathy, thyromegaly Respiratory exam: PRESENT: clear to auscultation roxanne. ABSENT: rales, rhonchi, wheezes Cardiovascular exam: PRESENT: RRR. ABSENT: diastolic murmur, rubs, systolic murmur Pulses: PRESENT: normal dorsalis pedis pul Vascular exam: PRESENT: normal capillary refill GI/Abdominal exam: PRESENT: normal bowel sounds, soft. ABSENT: distended, guarding, mass, organolmegaly, rebound, tenderness Rectal exam: PRESENT: deferred Extremities exam: PRESENT: full ROM, +2 edema - Left leg. ABSENT: calf tenderness, clubbing, pedal edema Neurological exam: PRESENT: alert, awake, oriented to person, oriented to place, oriented to time, oriented to situation, CN II-XII grossly intact. ABSENT: motor sensory deficit Psychiatric exam: PRESENT: appropriate affect, normal mood. ABSENT: homicidal ideation, suicidal ideation Skin exam: PRESENT: dry, erythema - Left leg circumferential erythema, +2 edema without open ulcer from foot to knee. ABSENT: abrasion, cyanosis Results Laboratory Results: 01/26/19 16:00 01/26/19 16:00 01/26/19 01/26/19 01/26/19 16:00 16:00 16:00 WBC 7.0 RBC 5.15 Hgb 14.8 Hct 44.2 MCV 86 MCH 28.7 MCHC 33.5 RDW 14.7 H Plt Count 240 Seg Neutrophils % 63.8 Lymphocytes % 23.9 Monocytes % 11.3 Eosinophils % 0.7 Basophils % 0.3 Absolute Neutrophils 4.5 Absolute Lymphocytes 1.7 Absolute Monocytes 0.8 Absolute Eosinophils 0.0 Absolute Basophils 0.0 Sodium 140.7 Potassium 4.3 Chloride 103 Carbon Dioxide 27 Anion Gap 11 BUN 13 Creatinine 0.88 Est GFR ( Amer) > 60 Est GFR (Non-Af Amer) > 60 Glucose 89 Calcium 9.3 Total Bilirubin 0.5 AST 27 ALT 31 Alkaline Phosphatase 100 Total Protein 7.5 Albumin 4.1 TSH Urine Color YELLOW Urine Appearance CLOUDY Urine pH 6.0 Ur Specific [place] 1.025 Urine Protein 30 H Urine Glucose (UA) NEGATIVE Urine Ketones NEGATIVE Urine Blood NEGATIVE Urine Nitrite NEGATIVE Ur Leukocyte Esterase NEGATIVE Urine WBC (Auto) 2 Urine RBC (Auto) 4 01/26/19 16:00 WBC RBC Hgb Hct MCV MCH MCHC RDW Plt Count Seg Neutrophils % Lymphocytes % Monocytes % Eosinophils % Basophils % Absolute Neutrophils Absolute Lymphocytes Absolute Monocytes Absolute Eosinophils Absolute Basophils Sodium Potassium Chloride Carbon Dioxide Anion Gap BUN Creatinine Est GFR ( Amer) Est GFR (Non-Af Amer) Glucose Calcium Total Bilirubin AST ALT Alkaline Phosphatase Total Protein Albumin TSH 5.44 H Urine Color Urine Appearance Urine pH Ur Specific [place] Urine Protein Urine Glucose (UA) Urine Ketones Urine Blood Urine Nitrite Ur Leukocyte Esterase Urine WBC (Auto) Urine RBC (Auto) Assessment and Plan - Diagnosis (1) Left leg cellulitis Is this a current diagnosis for this admission?: Yes Plan: Concern for strep given predominance of superficial erythema, med floor observation, elevation, symptomatic management, empiric antibiotics, follow-up CBC and blood culture (2) Leg pain Qualifiers: Laterality: left Qualified Code(s): M79.605 - Pain in left leg Is this a current diagnosis for this admission?: Yes Plan: Secondary to #1, - Time Time Spent with patient: 15-24 minutes
[2019-01-27] MEDS: HYDRALAZINE HCL 50 MG TABLET PO SCH ×3 (05:14→21:00)
[2019-01-27] MEDS: HEPARIN SOD (PORCINE) 5,000 UNIT/ML 1 ML VIAL SUBCUT SCH ×3 (05:14→21:00)
--- NOTE | 2019-01-27 06:48 | RADIOLOGY REPORT (SQ) ---
EXAM DESCRIPTION: US EXTREMITY VEINS UNILATERAL COMPLETED DATE/TME: 01/26/2019 19:06 CLINICAL HISTORY: 33 years Female left lower ext pain, redness, calf pain, eval DVT COMPARISON: None. TECHNIQUE: Duplex imaging performed to evaluate the left lower extremity venous structures. Compression imaging and augmentation imaging performed. The common femoral, superficial femoral, popliteal, greater saphenous and posterior tibial veins were examined. FINDINGS: Study is partially limited secondary to body habitus. Distal femoral vein and peroneal vein not seen. No thrombus is identified in the left lower extremity venous structures. IMPRESSION: No DVT is identified in the left lower extremity.
[2019-01-27 06:58] LABS: HEMATOCRIT 40.2 % (36.0-47.0); HEMOGLOBIN 13.6 g/dL (12.0-15.5); MEAN CORPUSCULAR HEMOGLOBIN 28.6 pg (27.0-33.4); MEAN CORPUSCULAR HGB CONC 33.8 g/dL (32.0-36.0); MEAN CORPUSCULAR VOLUME 85 fl (80-97); PLATELET COUNT 219 10^3/uL (150-450); RED BLOOD COUNT 4.73 10^6/uL (3.72-5.28); RED CELL DISTRIBUTION WIDTH 14.6 % (11.5-14.0); WHITE BLOOD COUNT 5.1 10^3/uL (4.0-10.5)
[2019-01-27 07:06] LABS: ANION GAP 6 (5-19); BLOOD UREA NITROGEN 14 mg/dL (7-20); CALCIUM 8.7 mg/dL (8.4-10.2); CARBON DIOXIDE 27 mmol/L (22-30); CHLORIDE 106 mmol/L (98-107); GLUCOSE 119 mg/dL (75-110); POTASSIUM 4.3 mmol/L (3.6-5.0)
[2019-01-27] MEDS ORDERED: HYDRALAZINE HCL INJ/PF 20 MG/1 ML SDV IV PRN (07:36)
[2019-01-27 07:39] LABS: ABSOLUTE LYMPHOCYTES# (MANUAL) 2.1 10^3/uL (0.5-4.7); ABSOLUTE MONOCYTES # (MANUAL) 0.8 10^3/uL (0.1-1.4); BAND NEUTROPHILS % (MANUAL) 1 % (3-5); BASOPHILS % (MANUAL) 0 % (0-2); EOSINOPHILS % (MANUAL) 1 % (0-6); LYMPHOCYTES % (MANUAL) 37 % (13-45); MONOCYTES % (MANUAL) 16 % (3-13); SEGMENTED NEUTROPHILS % (MAN) 41 % (42-78); TOTAL CELLS COUNTED 100
[2019-01-27 07:40] LABS: ANISOCYTOSIS SLIGHT; PLATELET COMMENT ADEQUATE
--- NOTE | 2019-01-27 08:54 | Progress Note ---
Provider Note Provider Note: 01/27/2019 [id number] female admitted with left lower leg cellulitis afebrile T-max is 98.5. WBC count is 5.1 on ceftriaxone IV. Comfortable in the bed communicating well expressing desire to go home today. Blood cultures are pending. On examination morbidly obese female not in distress pulse ox is 96% room air chest bilateral entry was good CVS S1-S2 abdomen soft obese bowel sounds are present. Patient's BMI is more than 62 diet exercise weight loss lifestyle modifications are discussed with the patient. Dietary consult will be requested.
[2019-01-27] MEDS: AMLODIPINE BESYLATE 10 MG TABLET PO SCH (09:32)
[2019-01-27] MEDS: ACETAMINOPHEN 325 MG TABLET PO PRN ×2 (15:43→22:28)
[2019-01-27] MEDS ORDERED: CEFTRIAXONE 2 GM/D5W RTU 2 GM/50 ML RTUPB IV SCH (22:00)
[2019-01-28] MEDS: HYDRALAZINE HCL 50 MG TABLET PO SCH (05:06)
[2019-01-28] MEDS: HEPARIN SOD (PORCINE) 5,000 UNIT/ML 1 ML VIAL SUBCUT SCH (05:06)
[2019-01-28] MEDS: ACETAMINOPHEN 325 MG TABLET PO PRN (05:10)
[2019-01-28] MEDS: AMLODIPINE BESYLATE 10 MG TABLET PO SCH (09:51)
--- NOTE | 2019-01-28 10:40 | PDOC DISCHARGE SUMMARY ---
General - Admit/Disc Date/PCP Admission Date/Primary Care Provider: 01/26/19 22:50 Discharge Date: 01/28/19 - Discharge Diagnosis (1) Left leg cellulitis Is this a current diagnosis for this admission?: Yes Summary: Concern for strep given predominance of superficial erythema, med floor observation, elevation, symptomatic management, empiric antibiotics, follow-up CBC and blood culture 01/28/2019-patient admitted with left lower leg cellulitis blood cultures are negative. Afebrile. WBC count is 5.1. Patient is advised to continue clindamycin at home and strongly advised to follow-up with primary care physician in 1 week time. (2) Leg pain Is this a current diagnosis for this admission?: Yes Summary: 07/31/2018-patient's left lower leg pain probably secondary to cellulitis. Which was resolving. (3) HTN (hypertension) Is this a current diagnosis for this admission?: Yes Summary: 07/31/2018-patient found to have elevated blood pressures this morning his blood pressure is 164/96 patient is given a prescription for amlodipine 10 mg p.o. daily. Advised low-salt diet and also advised diet exercise weight loss and complex medications. - Additional Information Resuscitation Status: Full Code Discharge Diet: Cardiac Discharge Activity: Activity As Tolerated Prescriptions: Amlodipine Besylate [Norvasc 10 mg Tablet] 10 mg PO DAILY #30 tablet Home Medications: Amlodipine Besylate [Norvasc 10 mg Tablet] 10 mg PO DAILY #30 tablet 01/28/19 History of Present Illness History of Present Illness: RAÚL POPE is a 33 year old female 33 year old female with a past medical history of morbid obesity, venous stasis and cellulitis requiring skin grafting to left lower extremity. She presents with 4 days of erythema swelling and pain to the left lower leg not preceded by trauma seen in the emergency room 48 hours ago and placed on clindamycin with little improvement she returns with increasing erythema from the foot to the knee. Imaging is unremarkable for DVT or abscess, she receives vancomycin and Rocephin and referred to the hospitalist for admission. Patient denies recent change in medications with exception to clindamycin. Hospital Course Hospital Course: 01/28/[id number] female admitted with left lower leg cellulitis blood cultures are negative afebrile WBC count is normal no acute events in the last 24 hours. And has enough clindamycin at home advised her to continue the med ication. She was started on amlodipine 10 mg p.o. daily for blood pressure. Physical Exam Vital Signs: Temp Pulse Resp BP Pulse Ox 98.4 F 86 16 140/64 H 96 01/28/19 07:30 01/28/19 07:30 01/28/19 07:30 01/28/19 07:30 01/28/19 07:30 Intake & Output 01/27/19 01/28/19 01/29/19 06:59 06:59 06:59 Intake Total 1452 50 Balance 1452 50 Weight 176.9 kg 176.4 kg General appearance: PRESENT: no acute distress, morbidly obese Head exam: PRESENT: atraumatic Eye exam: PRESENT: PERRLA Mouth exam: PRESENT: moist, tongue midline Teeth exam: PRESENT: poor dentation Neck exam: ABSENT: carotid bruit, JVD, lymphadenopathy, thyromegaly Respiratory exam: PRESENT: clear to auscultation roxanne. ABSENT: rales, rhonchi, wheezes Cardiovascular exam: PRESENT: RRR. ABSENT: diastolic murmur, rubs, systolic murmur GI/Abdominal exam: PRESENT: normal bowel sounds, soft. ABSENT: distended, guarding, mass, organolmegaly, rebound, tenderness Rectal exam: PRESENT: deferred Neurological exam: PRESENT: alert, awake, oriented to person, oriented to place, oriented to time, oriented to situation, CN II-XII grossly intact. ABSENT: motor sensory deficit Psychiatric exam: PRESENT: appropriate affect, normal mood. ABSENT: homicidal ideation, suicidal ideation Results Laboratory Results: 01/27/19 06:02 01/27/19 06:02 Impressions: Venous Doppler Study 01/26/19 19:06 IMPRESSION: No DVT is identified in the left lower extremity. Qualifiers - * PATIENT BEING DISCHARGED WITH ANY OF THE FOLLOWING DIAGNOSIS: No VTE patient discharged on overlapping Therapy?: No Acute Heart Failure - Is this a Heart Failure Patient?: No Plan Discharge Plan: Patient is discharged home today. Time Spent: Greater than 30 Minutes
[2019-01-28 12:12] VITALS: BP 134/71
== END 2019-01-28 13:30 | disposition home or self-care (01) ==
LOC: ER 14:02 → EH 22:50 → 2N 22:50 → UNDOADMOB 22:50 → 2N 01-27 01:58 → EH 01-27 01:58 → UNDODISOB 01-28 13:30
PROVIDERS: ADMIT Internal Medicine; ATTEND Internal Medicine
DX: L03.116 Cellulitis of left lower limb (principal); M79.605 Pain in left leg; I10 Essential (primary) hypertension; E66.01 Morbid (severe) obesity due to excess calories; I87.8 Other specified disorders of veins; R50.9 Fever, unspecified; Z98.890 Other specified postprocedural states; Z82.49 Family history of ischemic heart disease and other diseases of the circulatory system; Z68.44 Body mass index [BMI] 60.0-69.9, adult; Z79.3 Long term (current) use of hormonal contraceptives; Z95.828 Presence of other vascular implants and grafts
CPT/HCPCS: 99285; 96361; 96365; 96367; 36415 ×2; 87040; 84443; 85025 ×2; 80048; 80053; 81001; 93971; G0378 ×4; J1644 ×2; J1940; J0360; J7030 ×2; J3370; J0696

== ENCOUNTER → 2019-02-11 | Outpatient (CLI) | payer OTHER ==
[2019-02-11 09:29] LABS: ABSOLUTE EOSINOPHILS # (AUTO) 0.2 10^3/uL (0.0-0.6); ABSOLUTE LYMPHOCYTES (AUTO) 2.6 10^3/uL (0.5-4.7); ABSOLUTE MONOCYTES (AUTO) 0.8 10^3/uL (0.1-1.4); ABSOLUTE NEUT (AUTO) 4.1 10^3/uL (1.7-8.2); BASOPHILS % (AUTO) 0.4 % (0-2); EOSINOPHILS % (AUTO) 2.5 % (0-6); HEMATOCRIT 42.6 % (36.0-47.0); HEMOGLOBIN 14.4 g/dL (12.0-15.5); LYMPHOCYTES % (AUTO) 33.4 % (13-45); MEAN CORPUSCULAR HEMOGLOBIN 28.8 pg (27.0-33.4); MEAN CORPUSCULAR HGB CONC 33.9 g/dL (32.0-36.0); MEAN CORPUSCULAR VOLUME 85 fl (80-97); MONOCYTES % (AUTO) 10.6 % (3-13); PLATELET COUNT 320 10^3/uL (150-450); RED BLOOD COUNT 5.01 10^6/uL (3.72-5.28); RED CELL DISTRIBUTION WIDTH 15.1 % (11.5-14.0); SEGMENTED NEUTROPHILS % (AUTO) 53.1 % (42-78); TOTAL CELLS COUNTED % (AUTO) 100 %; WHITE BLOOD COUNT 7.6 10^3/uL (4.0-10.5)
[2019-02-11 09:58] LABS: ALBUMIN 4.1 g/dL (3.5-5.0); ALKALINE PHOSPHATASE 92 U/L (38-126); ANION GAP 6 (5-19); ASPARTATE AMINO TRANSFERASE 19 U/L (14-36); BILIRUBIN,DIRECT 0.2 mg/dL (0.0-0.4); BILIRUBIN,TOTAL 0.4 mg/dL (0.2-1.3); BLOOD UREA NITROGEN 14 mg/dL (7-20); CALCIUM 9.6 mg/dL (8.4-10.2); CARBON DIOXIDE 29 mmol/L (22-30); CHLORIDE 103 mmol/L (98-107); GLUCOSE 117 mg/dL (75-110); POTASSIUM 4.7 mmol/L (3.6-5.0); TOTAL PROTEIN 7.1 g/dL (6.3-8.2); TRIGLYCERIDES 199 mg/dL (<150)
[2019-02-11 10:09] LABS: DIRECT LDL 97 mg/dL (<100)
[2019-02-11 10:12] LABS: VLDL CHOLESTEROL 39.8 mg/dL (10-31)
== END ==
LOC: CCC 08:30
DX: Z00.00 Encounter for general adult medical examination without abnormal findings (principal)
CPT/HCPCS: 36415; 80053; 80061; 83036; 84443; 85025

== ENCOUNTER → 2019-02-18 | Outpatient (CLI) | payer OTHER ==
[2019-02-18 16:04] LABS: FREE T3 4.26 pg/mL (2.77-5.27); FREE T4 (FREE THYROXINE) 0.93 ng/dL (0.78-2.19)
[2019-02-18 16:17] LABS: THYROID STIMULATING HORMONE 2.33 uIU/mL (0.47-4.68)
[2019-02-20 08:59] LABS: T3 UPTAKE (RESIN) 26 % (24-39)
== END ==
LOC: CCC 14:40
DX: Z00.00 Encounter for general adult medical examination without abnormal findings (principal)
CPT/HCPCS: 36415; 84439; 84443; 84479; 84481

== ENCOUNTER 2019-09-08 18:42 | Emergency (ER) | payer SELFPAY ==
--- NOTE | 2019-09-08 18:52 | ER Document Report ---
ED Medical Screen (RME) - General Chief Complaint: Shortness Of Breath Stated Complaint: SHORT OF BREATH Time Seen by Provider: 09/08/19 18:49 Primary Care Provider: LIZZIE MCCALL [Primary Care Provider] - Follow up as needed Notes: 33-year-old female with history of asthma presents with shortness of breath and chest tightness that started few days ago. Patient states she has been using inhaler and nebulizer treatment with little relief. Last nebulizer treatment was at 5 PM. Lungs clear to auscultation bilaterally. Patient's heart rate is 125 in triage I have greeted and performed a rapid initial assessment of this patient. A comprehensive ED assessment and evaluation of the patient, analysis of test results and completion of the medical decision making process with be conducted by additional ED providers. TRAVEL OUTSIDE OF THE [place] IN LAST 30 DAYS: No - Related Data Allergies/Adverse Reactions: ibuprofen [From Motrin] Allergy (Mild, Verified 01/27/19 08:28) Past Medical History - Past Medical History Cardiac Medical History: Reports: Hx Hypertension Denies: Hx Coronary Artery Disease, Hx Heart Attack Pulmonary Medical History: Reports: Hx Asthma, Hx Bronchitis, Hx Pneumonia - as a child Denies: Hx COPD Neurological Medical History: Denies: Hx Cerebrovascular Accident, Hx Seizures Renal/ Medical History: Denies: Hx Peritoneal Dialysis Musculoskeltal Medical History: Denies Hx Arthritis Skin Medical History: Reports Hx Cellulitis Psychiatric Medical History: Reports: Hx Depression Past Surgical History: Reports: Hx Cholecystectomy, Hx Orthopedic Surgery - left lower leg - Immunizations Immunizations up to date: Yes Hx Diphtheria, Pertussis, Tetanus Vaccination: Yes Physical Exam - Vital signs Vitals: Temp Pulse Resp BP Pulse Ox 99.6 F 126 H 20 157/118 H 93 09/08/19 18:45 09/08/19 18:45 09/08/19 18:45 09/08/19 18:45 09/08/19 18:45 Course - Vital Signs Vital signs: Temp Pulse Resp BP Pulse Ox 99.6 F 126 H 20 157/118 H 93 09/08/19 18:45 09/08/19 18:45 09/08/19 18:45 09/08/19 18:45 09/08/19 18:45 Doctor's Discharge - Discharge Referrals: LIZZIE MCCALL [Primary Care Provider] - Follow up as needed
[2019-09-08] MEDS ORDERED: IPRATROPIUM/ALBUTEROL 0.5-2.5 MG/3 ML AMPUL NEB ONE (18:53)
[2019-09-08] MEDS ORDERED: METHYLPREDNISOLONE INJ 125 MG/2 ML SDV IV ONE (18:53)
--- NOTE | 2019-09-08 19:43 | RADIOLOGY REPORT (SQ) ---
EXAM DESCRIPTION: CHEST 2 VIEWS COMPLETED DATE/TIME: 09/08/2019 7:24 pm REASON FOR STUDY: dyspnea, cough COMPARISON: 09/07/2016 EXAM PARAMETERS: NUMBER OF VIEWS: two views TECHNIQUE: Digital Frontal and Lateral radiographic views of the chest acquired. RADIATION DOSE: NA LIMITATIONS: none FINDINGS: LUNGS AND PLEURA: No opacities, masses or pneumothorax. No pleural effusion. MEDIASTINUM AND HILAR STRUCTURES: No masses or contour abnormalities. HEART AND VASCULAR STRUCTURES: Heart normal size. No evidence for failure. BONES: No acute findings. HARDWARE: None in the chest. OTHER: No other significant finding. IMPRESSION: NO ACUTE RADIOGRAPHIC FINDING IN THE CHEST. TECHNICAL DOCUMENTATION: JOB ID: [id number] 2010 [employer]- All Rights Reserved Reading location - IP/workstation name: [email or web address]
--- NOTE | 2019-09-08 20:12 | ER Document Report ---
ED General - General Chief Complaint: Shortness Of Breath Stated Complaint: SHORT OF BREATH Time Seen by Provider: 09/08/19 18:49 Primary Care Provider: [facility] [Primary Care Provider] - Follow up in 1 week Notes: This 33-year-old female with history of asthma morbidly obese presents emergency department with reports that she felt really tight today. She reports she used her nebulizer but the medication is so she does not think it helped. She reports she had a fever 101 today. She took Tylenol at 1700. Denies vomiting diarrhea. She reports she used to smoke but she quit. She reports she lives with her family and nobody smokes there. TRAVEL OUTSIDE OF THE [place] IN LAST 30 DAYS: No - HPI Onset: This morning Onset/Duration: Sudden Quality of pain: No pain Associated symptoms: Nonproductive cough Exacerbated by: Denies Relieved by: Denies Similar symptoms previously: Yes Recently seen / treated by doctor: No - Related Data Allergies/Adverse Reactions: ibuprofen [From Motrin] Allergy (Mild, Verified 01/27/19 08:28) Home Medications: albuterol Past Medical History - General Information source: Patient Last Menstrual Period: Last week - Social History Smoking Status: Former Smoker Cigarette use (# per day): No Chew tobacco use (# tins/day): No Frequency of alcohol use: None Drug Abuse: None Occupation: none Lives with: Family Family History: Hypertension Patient has suicidal ideation: No Patient has homicidal ideation: No - Past Medical History Cardiac Medical History: Reports: Hx Hypertension Denies: Hx Coronary Artery Disease, Hx Heart Attack Pulmonary Medical History: Reports: Hx Asthma, Hx Bronchitis, Hx Pneumonia - as a child Denies: Hx COPD Neurological Medical History: Denies: Hx Cerebrovascular Accident, Hx Seizures Renal/ Medical History: Denies: Hx Peritoneal Dialysis Musculoskeletal Medical History: Denies Hx Arthritis Skin Medical History: Reports Hx Cellulitis Psychiatric Medical History: Reports: Hx Depression Past Surgical History: Reports: Hx Cholecystectomy, Hx Orthopedic Surgery - left lower leg - Immunizations Immunizations up to date: Yes Hx Diphtheria, Pertussis, Tetanus Vaccination: Yes Hx Pneumococcal Vaccination: 05/30/12 Review of Systems - Review of Systems Notes: Review HPI for review of systems., All other systems negative Physical Exam - Vital signs Vitals: Temp Pulse Resp BP Pulse Ox 99.6 F 126 H 20 157/118 H 93 09/08/19 18:45 09/08/19 18:45 09/08/19 18:45 09/08/19 18:45 09/08/19 18:45 - General General appearance: Alert, Anxious In distress: None - HEENT Head: Normocephalic, Atraumatic Eyes: Normal Conjunctiva: Normal Extraocular movements intact: Yes Ears: Normal External canal: Normal Tympanic membrane: Normal Mouth/Lips: Normal Mucous membranes: Normal, Moist Pharynx: Normal Neck: Normal, Supple. No: Lymphadenopathy - Respiratory Respiratory status: No respiratory distress Chest status: Nontender Breath sounds: Nonproductive cough, Wheezing Chest palpation: Normal - Cardiovascular Rhythm: Regular, Tachycardia Heart sounds: Normal auscultation Murmur: No - Abdominal Inspection: Normal, Morbidly Obese Distension: No distension Bowel sounds: Normal Tenderness: Nontender - Back Back: Normal - Extremities General upper extremity: Normal ROM General lower extremity: Normal ROM, Normal weight bearing - Neurological Neuro grossly intact: Yes Cognition: Normal Orientation: AAOx4 [place] Coma Scale Eye Opening: Spontaneous [place] Coma Scale Verbal: Oriented Radha Coma Scale Motor: Obeys Commands Radha Coma Scale Total: 15 Speech: Normal - Psychological Associated symptoms: Normal affect, Normal mood - Skin Skin Temperature: Warm Skin Moisture: Dry Skin Color: Normal Course - Re-evaluation Re-evalutation: 09/08/19 23:37 Labs unremarkable, chest x-ray negative. Patient was ambulated around the emergency department. Her heart rate did increase with ambulation her O2 sat stayed between 92 to 94%. Patient reports she is feeling a lot better. She reports she did get winded walking around and felt hot but reports she does not feel 100% but she is feeling a lot better and would like to go home. Patient BMI 62.7 which would explain SOB with exertion, no c/o chest pain. Patient also requests a refill on her albuterol nebs because she reports are all . She was instructed on the importance of returning here immediately for any concerns over her breathing retractions she verbalized understanding to all instructions. Respiratory rate even unlabored no wheeze at this time. Dr Larsen consulted agree's with discharge Chest X-Ray 09/08/19 18:51 IMPRESSION: NO ACUTE RADIOGRAPHIC FINDING IN THE CHEST. Laboratory 09/08/19 09/08/19 09/08/19 19:42 19:42 19:42 WBC 8.1 RBC 4.97 Hgb 13.7 Hct 41.1 MCV 83 MCH 27.6 MCHC 33.4 RDW 15.1 H Plt Count 328 Lymph % (Auto) 13.7 Alfalfa % (Auto) 14.1 H Eos % (Auto) 0.0 Baso % (Auto) 0.1 Absolute Neuts (auto) 5.9 Absolute Lymphs (auto) 1.1 Absolute Monos (auto) 1.1 Absolute Eos (auto) 0.0 Absolute Basos (auto) 0.0 Seg Neutrophils % 72.1 VBG pH VBG pCO2 VBG HCO3 VBG Base Excess Sodium 139.2 Potassium 4.7 Chloride 105 Carbon Dioxide 24 Anion Gap 10 BUN 10 Creatinine 0.64 Est GFR ( Amer) > 60 Est GFR (MDRD) Non-Af > 60 Glucose 85 Lactic Acid Calcium 9.1 Total Bilirubin 0.3 Direct Bilirubin 0.3 Neonat Total Bilirubin Not Reportable Neonat Direct Bilirubin Not Reportable Neonat Indirect Bili Not Reportable AST 23 ALT 19 Alkaline Phosphatase 80 Troponin I < 0.012 Total Protein 7.4 Albumin 4.1 Serum HCG, Qual Urine Color Urine Appearance Urine pH Ur Specific [place] Urine Protein Urine Glucose (UA) Urine Ketones Urine Blood Urine Nitrite (Reflex) Urine Bilirubin Urine Urobilinogen Leukocyte Esterase Rfl Urine RBC (Auto) Urine WBC (Reflex) Squamous Epi Cells Auto Urine Mucus (Auto) Urine Ascorbic Acid 09/08/19 09/08/19 09/08/19 19:42 19:42 19:42 WBC RBC Hgb Hct MCV MCH MCHC RDW Plt Count Lymph % (Auto) Alfalfa % (Auto) Eos % (Auto) Baso % (Auto) Absolute Neuts (auto) Absolute Lymphs (auto) Absolute Monos (auto) Absolute Eos (auto) Absolute Basos (auto) Seg Neutrophils % VBG pH 7.43 H VBG pCO2 34.0 L VBG HCO3 21.8 VBG Base Excess -1.8 Sodium Potassium Chloride Carbon Dioxide Anion Gap BUN Creatinine Est GFR ( Amer) Est GFR (MDRD) Non-Af Glucose Lactic Acid 1.9 Calcium Total Bilirubin Direct Bilirubin Neonat Total Bilirubin Neonat Direct Bilirubin Neonat Indirect Bili AST ALT Alkaline Phosphatase Troponin I Total Protein Albumin Serum HCG, Qual NEGATIVE Urine Color Urine Appearance Urine pH Ur Specific [place] Urine Protein Urine Glucose (UA) Urine Ketones Urine Blood Urine Nitrite (Reflex) Urine Bilirubin Urine Urobilinogen Leukocyte Esterase Rfl Urine RBC (Auto) Urine WBC (Reflex) Squamous Epi Cells Auto Urine Mucus (Auto) Urine Ascorbic Acid 09/08/19 21:44 WBC RBC Hgb Hct MCV MCH MCHC RDW Plt Count Lymph % (Auto) Alfalfa % (Auto) Eos % (Auto) Baso % (Auto) Absolute Neuts (auto) Absolute Lymphs (auto) Absolute Monos (auto) Absolute Eos (auto) Absolute Basos (auto) Seg Neutrophils % VBG pH VBG pCO2 VBG HCO3 VBG Base Excess Sodium Potassium Chloride Carbon Dioxide Anion Gap BUN Creatinine Est GFR ( Amer) Est GFR (MDRD) Non-Af Glucose Lactic Acid Calcium Total Bilirubin Direct Bilirubin Neonat Total Bilirubin Neonat Direct Bilirubin Neonat Indirect Bili AST ALT Alkaline Phosphatase Troponin I Total Protein Albumin Serum HCG, Qual Urine Color YELLOW Urine Appearance SLIGHTLY-CLOUDY Urine pH 5.0 Ur Specific [place] 1.025 Urine Protein NEGATIVE Urine Glucose (UA) NEGATIVE Urine Ketones NEGATIVE Urine Blood NEGATIVE Urine Nitrite (Reflex) NEGATIVE Urine Bilirubin NEGATIVE Urine Urobilinogen NEGATIVE Leukocyte Esterase Rfl NEGATIVE Urine RBC (Auto) 2 Urine WBC (Reflex) < 1 Squamous Epi Cells Auto 5 Urine Mucus (Auto) OCC Urine Ascorbic Acid NEGATIVE 09/09/19 00:54 09/09/19 00:56 - Vital Signs Vital signs: Temp Pulse Resp BP Pulse Ox 99.5 F 126 H 20 163/89 H 92 09/09/19 00:15 09/08/19 18:45 09/09/19 00:01 09/09/19 00:01 09/09/19 00:01 - Laboratory Result Diagrams: 09/08/19 19:42 09/08/19 19:42 Laboratory results interpreted by me: 09/08/19 09/08/19 19:42 19:42 RDW 15.1 H Alfalfa % (Auto) 14.1 H VBG pH 7.43 H VBG pCO2 34.0 L - Diagnostic Test Radiology reviewed: Image reviewed, Reports reviewed - EKG Interpretation by Me EKG shows normal: Sinus rhythm Rate: Tachycardia Additional EKG results interpreted by me: 09/09/19 00:[address] elevation or T wave inversion Discharge - Discharge Clinical Impression: Wheeze, Difficulty breathing, History of asthma Condition: Stable Disposition: HOME, SELF-CARE Instructions: Asthma ([facility]), Bronchodilators ([facility]), Steroid Medication Injection, Steroid Medication Additional Instructions: *You have been evaluated for a difficulty breathing, wheeze, history of asthma *Take medication as prescribed *Use your inhaler as prescribed *Increase fluids *Monitor your temperature, take Tylenol as indicated *Follow up with a primary care provider within one week *Return to ED for increasing fever, cough, worsening condition, changes, needs, difficulty breathing, concerns Monitor your blood pressure. Your blood pressure was elevated today. This may be because you were anxious, in pain or because you need medication. It is important to follow up with your primary care provider for full evaluation. Prescriptions: Methylprednisolone [Medrol Dosepack (4 mg/Tab) 21 Tab/Dosepak] 4 mg PO ASDIR PRN #21 tab.ds.pk PRN Reason: Albuterol Sulfate [Ventolin 0.083% Neb 2.5 mg/3 mL Ampul] 1 vial NEB Q4 #1 unit Forms: Elevated Blood Pressure Ref[facility]: [facility] [Primary Care Provider] - Follow up in 1 week
[2019-09-08 20:20] LABS: VENOUS BLOOD BASE EXCESS -1.8 mmol/L; VENOUS BLOOD HCO3 21.8 mmol/L (20-32); VENOUS BLOOD PH 7.43 (7.30-7.42)
[2019-09-08 20:21] LABS: ABSOLUTE LYMPHOCYTES (AUTO) 1.1 10^3/uL (0.5-4.7); ABSOLUTE MONOCYTES (AUTO) 1.1 10^3/uL (0.1-1.4); ABSOLUTE NEUT (AUTO) 5.9 10^3/uL (1.7-8.2); BASOPHILS % (AUTO) 0.1 % (0-2); HEMATOCRIT 41.1 % (36.0-47.0); HEMOGLOBIN 13.7 g/dL (12.0-15.5); LYMPHOCYTES % (AUTO) 13.7 % (13-45); MEAN CORPUSCULAR HEMOGLOBIN 27.6 pg (27.0-33.4); MEAN CORPUSCULAR HGB CONC 33.4 g/dL (32.0-36.0); MEAN CORPUSCULAR VOLUME 83 fl (80-97); MONOCYTES % (AUTO) 14.1 % (3-13); PLATELET COUNT 328 10^3/uL (150-450); RED BLOOD COUNT 4.97 10^6/uL (3.72-5.28); RED CELL DISTRIBUTION WIDTH 15.1 % (11.5-14.0); SEGMENTED NEUTROPHILS % (AUTO) 72.1 % (42-78); TOTAL CELLS COUNTED % (AUTO) 100 %; WHITE BLOOD COUNT 8.1 10^3/uL (4.0-10.5)
[2019-09-08 20:37] LABS: ALBUMIN 4.1 g/dL (3.5-5.0); ALKALINE PHOSPHATASE 80 U/L (38-126); ANION GAP 10 (5-19); ASPARTATE AMINO TRANSFERASE 23 U/L (14-36); BILIRUBIN,DIRECT 0.3 mg/dL (0.0-0.4); BILIRUBIN,TOTAL 0.3 mg/dL (0.2-1.3); BLOOD UREA NITROGEN 10 mg/dL (7-20); CALCIUM 9.1 mg/dL (8.4-10.2); CARBON DIOXIDE 24 mmol/L (22-30); CHLORIDE 105 mmol/L (98-107); GLUCOSE 85 mg/dL (75-110); POTASSIUM 4.7 mmol/L (3.6-5.0); TOTAL PROTEIN 7.4 g/dL (6.3-8.2)
[2019-09-08] MEDS ORDERED: ALBUTEROL SULFATE 0.083% NEB 2.5 MG/3 ML AMPUL NEB ONE ×2 (21:17→21:18)
[2019-09-08 22:19] LABS: APPEARANCE,URINE SLIGHTLY-CLOUDY; BILIRUBIN,URINE NEGATIVE (NEGATIVE); COLOR,URINE YELLOW; GLUCOSE, URINE NEGATIVE (NEGATIVE); KETONES,URINE NEGATIVE (NEGATIVE); PROTEIN,URINE NEGATIVE (NEGATIVE); URINE SPECIFIC GRAVITY 1.025; UROBILINOGEN,URINE NEGATIVE mg/dL (<2.0)
[2019-09-08] MEDS ORDERED: ALBUTEROL SULFATE HFA (90 MCG/PUFF) 8 GM MDI (1 MDI/ER DISP) IH ONE (23:39)
[2019-09-09 00:11] VITALS: BP 163/89
--- NOTE | 2019-09-09 07:25 | EKG REPORT ---
SEVERITY:- ABNORMAL ECG - SINUS TACHYCARDIA LEFT ANTERIOR FASCICULAR BLOCK POOR R WAVE PROGRESSION ANT LEADS, CONSIDER OLD ANTERIOR PA VS LEAD PLACEMENT. : Confirmed by: Kevin Stout MD 09-Sep-2019 07:24:53
== END 2019-09-09 00:17 | disposition home or self-care (01) ==
LOC: ER 18:42
DX: J45.909 Unspecified asthma, uncomplicated (principal); E66.01 Morbid (severe) obesity due to excess calories; Z68.44 Body mass index [BMI] 60.0-69.9, adult; R06.02 Shortness of breath; R00.0 Tachycardia, unspecified; R05 Cough; I10 Essential (primary) hypertension; Z79.899 Other long term (current) drug therapy; Z87.01 Personal history of pneumonia (recurrent); Z87.891 Personal history of nicotine dependence
CPT/HCPCS: 93005; 94640 ×2; 99285; 96374; 36415; 83605; 84703; 85025; 80053; 81001; 84484; 82803; 71046; 93010; J2930; J3490; J7620

== ENCOUNTER 2019-11-11 20:14 | Inpatient (IN) | payer SELFPAY ==
[2019-11-11] MEDS ORDERED: ACETAMINOPHEN 325 MG TABLET PO ONE (20:46)
[2019-11-11] MEDS ORDERED: ACETAMINOPHEN 325 MG TABLET ONE (20:47)
[2019-11-11] MEDS ORDERED: NORMAL SALINE 1000 ML 1,000 ML IV ONE ×2 (20:48)
--- NOTE | 2019-11-11 21:01 | ER Document Report ---
ED Medical Screen (RME) - General Chief Complaint: Wound Infection Stated Complaint: LEFT LEG WOUND Time Seen by Provider: 11/11/19 20:46 Mode of Arrival: Ambulatory Information source: Patient Notes: 33-year-old female presents with left leg infection. She reports she has had wound infection come and go for the past 5 years after she hurt herself. She reports site started turning red last night. She also started having fever. Denies COVID exposure. Has not been out of the state. No recent trips. Denies vomiting diarrhea. Reports she is has a history of the cellulitis. I have greeted and performed a rapid initial assessment of this patient. A comprehensive ED assessment and evaluation of the patient, analysis of test results and completion of the medical decision making process will be conducted by additional ED providers. TRAVEL OUTSIDE OF THE [place] IN LAST 30 DAYS: No - Related Data Allergies/Adverse Reactions: ibuprofen [From Motrin] Allergy (Mild, Verified 01/27/19 08:28) Past Medical History - Past Medical History Cardiac Medical History: Reports: Hx Hypertension Denies: Hx Coronary Artery Disease, Hx Heart Attack Pulmonary Medical History: Reports: Hx Asthma, Hx Bronchitis, Hx Pneumonia - as a child Denies: Hx COPD Neurological Medical History: Denies: Hx Cerebrovascular Accident, Hx Seizures Renal/ Medical History: Denies: Hx Peritoneal Dialysis Musculoskeltal Medical History: Denies Hx Arthritis Skin Medical History: Reports Hx Cellulitis Psychiatric Medical History: Reports: Hx Depression Past Surgical History: Reports: Hx Cholecystectomy, Hx Orthopedic Surgery - left lower leg - Immunizations Immunizations up to date: Yes Hx Diphtheria, Pertussis, Tetanus Vaccination: Yes Physical Exam - Vital signs Vitals: Temp Pulse Resp BP Pulse Ox 103.1 F H 124 H 20 190/105 H 100 11/11/19 20:14 11/11/19 20:14 11/11/19 20:14 11/11/19 20:14 11/11/19 20:14 Course - Vital Signs Vital signs: Temp Pulse Resp BP Pulse Ox 103.1 F H 124 H 18 190/105 H 100 11/11/19 20:19 11/11/19 20:19 11/11/19 20:19 11/11/19 20:19 11/11/19 20:19
[2019-11-11 21:13] LABS: HEMATOCRIT 40.6 % (36.0-47.0); HEMOGLOBIN 13.8 g/dL (12.0-15.5); MEAN CORPUSCULAR HEMOGLOBIN 27.8 pg (27.0-33.4); MEAN CORPUSCULAR VOLUME 82 fl (80-97); PLATELET COUNT 305 10^3/uL (150-450); RED BLOOD COUNT 4.96 10^6/uL (3.72-5.28); RED CELL DISTRIBUTION WIDTH 16.1 % (11.5-14.0); WHITE BLOOD COUNT 14.1 10^3/uL (4.0-10.5)
[2019-11-11 21:16] LABS: VENOUS BLOOD BASE EXCESS 2.5 mmol/L; VENOUS BLOOD HCO3 28.6 mmol/L (20-32); VENOUS BLOOD PCO2 49.5 mmHg (35-63); VENOUS BLOOD PH 7.38 (7.30-7.42)
[2019-11-11 21:21] LABS: INTERNATIONAL RATION (INR) 1.12; PROTHROMBIN TIME 14.5 SEC (11.4-15.4)
[2019-11-11 21:36] LABS: ALBUMIN 3.9 g/dL (3.5-5.0); ALKALINE PHOSPHATASE 91 U/L (38-126); ANION GAP 7 (5-19); ASPARTATE AMINO TRANSFERASE 20 U/L (14-36); BILIRUBIN,TOTAL 0.7 mg/dL (0.2-1.3); BLOOD UREA NITROGEN 13 mg/dL (7-20); CALCIUM 8.7 mg/dL (8.4-10.2); CARBON DIOXIDE 28 mmol/L (22-30); CHLORIDE 99 mmol/L (98-107); GLUCOSE 104 mg/dL (75-110); POTASSIUM 4.1 mmol/L (3.6-5.0)
--- NOTE | 2019-11-11 21:36 | ER Document Report ---
ED Medical Screen (RME) - General Chief Complaint: Wound Infection Stated Complaint: LEFT LEG WOUND Time Seen by Provider: 11/11/19 20:46 Mode of Arrival: Ambulatory Notes: triage note seen at [facility] in january 2019 for cellulitis and admitted. pt states she has been using antibiotic ointment, changing bandages, and using silver ointment and wound has gotten worse. pt has large area of redness with drainage to almost entire left corcoran, elevated HR, temperature of 103.1 and has been feeling chills. pt states corcoran has been numb since she got the wound from falling 5 years ago and continues to have numbess to corcoran but is able to feel touch on feet. pt aox4, breathes e/u. slight sob that pt states is normal because she has asthma, pats note 33-year-old female presents with left leg infection. She reports she has had wound infection come and go for the past 5 years after she hurt herself. She reports site started turning red last night. She also started having fever. Denies COVID exposure. Has not been out of the state. No recent trips. Denies vomiting diarrhea. Reports she is has a history of the cellulitis. my notes 33-year-old female arrives with chief complaint of draining erythemic corcoran lesion which has been present for more than 5 years after she slipped while going to the [facility] and injured her anterior corcoran with hematoma which never healed. Patient has been keeping her wound clean with Hibiclens soap and [employer] nonadhesive pads and also nonstick tape. Patient reports she has no money in which to invest in other skin medications. She has used some silver treatment to her skin wound recently. 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 Patient takes Norvasc for her hypertension which sometimes causes headaches and edema of her legs. TRAVEL OUTSIDE OF THE [place] IN LAST 30 DAYS: No - Related Data Allergies/Adverse Reactions: ibuprofen [From Motrin] Allergy (Mild, Verified 01/27/19 08:28) Past Medical History - General Information source: Patient - Social History Cigarette use (# per day): No Chew tobacco use (# tins/day): No Frequency of alcohol use: None Drug Abuse: None Lives with: Family - Past Medical History Cardiac Medical History: Reports: Hx Hypertension Denies: Hx Coronary Artery Disease, Hx Heart Attack Pulmonary Medical History: Reports: Hx Asthma, Hx Bronchitis, Hx Pneumonia - as a child Denies: Hx COPD Neurological Medical History: Denies: Hx Cerebrovascular Accident, Hx Seizures Renal/ Medical History: Denies: Hx Peritoneal Dialysis Musculoskeltal Medical History: Denies Hx Arthritis Skin Medical History: Reports Hx Cellulitis Psychiatric Medical History: Reports: Hx Depression Past Surgical History: Reports: Hx Cholecystectomy, Hx Orthopedic Surgery - left lower leg - Immunizations Immunizations up to date: Yes Hx Diphtheria, Pertussis, Tetanus Vaccination: Yes Review of Systems - Review of Systems Constitutional: See HPI, Fever EENT: No symptoms reported Cardiovascular: No symptoms reported Respiratory: No symptoms reported Gastrointestinal: No symptoms reported Genitourinary: No symptoms reported Female Genitourinary: No symptoms reported Musculoskeletal: No symptoms reported Skin: See HPI, Change in color, Lesions, Rash Hematologic/Lymphatic: No symptoms reported Neurological/Psychological: No symptoms reported Physical Exam - Vital signs Vitals: Temp Pulse Resp BP Pulse Ox 103.1 F H 124 H 20 190/105 H 100 11/11/19 20:14 11/11/19 20:14 11/11/19 20:14 11/11/19 20:14 11/11/19 20:14 Interpretation: Hypertensive, Tachycardic, Febrile - General General appearance: Alert - HEENT Head: Normocephalic, Atraumatic Eyes: Normal Pupils: PERRL Mouth/Lips: Normal Pharynx: Normal Neck: Normal - Respiratory Respiratory status: No respiratory distress Chest status: Nontender Breath sounds: Normal Chest palpation: Normal - Cardiovascular Rhythm: Tachycardia Heart sounds: Normal auscultation Murmur: No - Abdominal Inspection: Normal Distension: No distension Bowel sounds: Normal Tenderness: Nontender Organomegaly: No organomegaly - Genitourinary External exam: Other - deferred - Back Back: Normal - Extremities General upper extremity: Normal inspection General lower extremity: Tender, Edema, Other - left erythemic skin lesion - Neurological Neuro grossly intact: Yes Cognition: Normal Orientation: AAOx4 [place] Coma Scale Eye Opening: Spontaneous Radha Coma Scale Verbal: Oriented [place] Coma Scale Motor: Obeys Commands [place] Coma Scale Total: 15 Speech: Normal Motor strength normal: LUE, RUE, LLE, RLE Sensory: Normal - Psychological Associated symptoms: Normal affect - Skin Skin Temperature: Warm Skin Moisture: Dry Skin Color: Erythema, Mottled, Other - cellulitis Skin Turgor: Edematous Course - Vital Signs Vital signs: Temp Pulse Resp BP Pulse Ox 103 F H 124 H 18 158/78 H 100 11/11/19 22:13 11/11/19 20:19 11/11/19 20:19 11/11/19 22:52 11/11/19 20:19 - Laboratory Result Diagrams: 11/11/19 20:47 11/11/19 20:47 Laboratory results interpreted by me: 11/11/19 11/11/19 20:47 20:47 WBC 14.1 H RDW 16.1 H Seg Neuts % (Manual) 85 H Band Neutrophils % 6 H Lymphocytes % (Manual) 6 L Abs Neuts (Manual) 12.8 H Sodium 134.0 L Critical Care Note - Critical Care Note Total time excluding time spent on procedures (mins): 90 Comments: I discussed this case with Dr. Adan Swenson and he advises admission; I discussed admission possibility with patient and she is agreeable to this. Doctor's Discharge - Discharge Clinical Impression: Left leg cellulitis, Cellulitis of left anterior lower leg Cellulitis Qualifiers: Site of cellulitis: extremity Site of cellulitis of extremity: lower extremity Laterality: left Qualified Code(s): L03.116 - Cellulitis of left lower limb Sepsis Qualifiers: Sepsis type: sepsis due to unspecified organism Sepsis acute organ dysfunction status: unspecified Qualified Code(s): A41.9 - Sepsis, unspecified organism Fever Qualifiers: Fever type: unspecified Qualified Code(s): R50.9 - Fever, unspecified Condition: Good Disposition: ADMITTED INPATIENT
[2019-11-11] MEDS ORDERED: VANCOMYCIN HCL INJ 1000 MG VIAL IV ONE (21:38)
[2019-11-11] MEDS ORDERED: PIPERACILLIN/TAZOBACTAM 3.375 GM VIAL IV ONE (21:39)
[2019-11-11 21:51] LABS: ABSOLUTE LYMPHOCYTES# (MANUAL) 0.8 10^3/uL (0.5-4.7); ABSOLUTE MONOCYTES # (MANUAL) 0.4 10^3/uL (0.1-1.4); BAND NEUTROPHILS % (MANUAL) 6 % (3-5); BASOPHILS % (MANUAL) 0 % (0-2); EOSINOPHILS % (MANUAL) 0 % (0-6); LYMPHOCYTES % (MANUAL) 6 % (13-45); MONOCYTES % (MANUAL) 3 % (3-13); SEGMENTED NEUTROPHILS % (MAN) 85 % (42-78); TOTAL CELLS COUNTED 100
[2019-11-11 21:54] LABS: ANISOCYTOSIS 1+
[2019-11-11 21:55] LABS: PLATELET COMMENT ADEQUATE
[2019-11-11] MEDS ORDERED: FUROSEMIDE INJ/PF 20 MG/2 ML SDV IV ONE (22:05)
--- NOTE | 2019-11-11 22:42 | RADIOLOGY REPORT (SQ) ---
EXAM DESCRIPTION: XR TIBIA FIBULA 2 VIEWS COMPLETED DATE/TME: 11/11/2019 21:40 CLINICAL HISTORY: 33 years, Female, wound COMPARISON: Multiple priors. NUMBER OF VIEWS: 4 TECHNIQUE: Frontal and lateral radiograph were acquired LIMITATIONS: None. FINDINGS: Visualized osseous structures are normal in appearance. Joint spaces are well-maintained. No acute fracture or dislocation is evident.. There is diffuse soft tissue swelling about the left lower leg with a large soft tissue defect located about the anterior aspect of the mid lower leg, suspicious for ulceration. No evidence of periostitis or cortical resorption of bone. IMPRESSION: Diffuse soft tissue swelling about the left lower leg with focal soft tissue defect about its mid aspect anteriorly, suspicious for soft tissue ulceration. No underlying acute osseous anomaly. copyright 2010 [employer]- All Rights Reserved
[2019-11-11] MEDS ORDERED: IPRATROPIUM/ALBUTEROL 0.5-2.5 MG/3 ML AMPUL NEB PRN (23:26)
[2019-11-11] MEDS ORDERED: MAG HYDROX/AL HYDROX/SIMETH SUSP 30 ML UDCUP PO PRN (23:26)
[2019-11-11] MEDS ORDERED: MAGNESIUM HYDROXIDE SUSP 30 ML UDCUP PO PRN (23:26)
[2019-11-11] MEDS ORDERED: VANCOMYCIN HCL 0 MG in DEXTROSE 5%-WATER 250 ML IV NR (23:30)
[2019-11-11] MEDS ORDERED: PIPERACILLIN/TAZOBACTAM 4.5 GM VIAL IV PRN (23:53)
[2019-11-11] MEDS ORDERED: FUROSEMIDE 40 MG TABLET PO ONE (23:59)
[2019-11-11] MEDS ORDERED: LOSARTAN POTASSIUM 50 MG TABLET PO ONE (23:59)
[2019-11-12] MEDS: ACETAMINOPHEN 325 MG TABLET PO PRN ×4 (00:43→21:06)
[2019-11-12] MEDS ORDERED: HYDRALAZINE HCL INJ/PF 20 MG/1 ML SDV IV PRN (01:14)
[2019-11-12] MEDS ORDERED: PIPERACILLIN/TAZOBACTAM 4.5 GM VIAL IV ONE (02:35)
[2019-11-12] MEDS: PIPERACILLIN SODIUM/TAZOBACTAM 4.5 GM in NORMAL SALINE 100 ML IV SCH ×4 (02:58→21:07)
[2019-11-12] MEDS ORDERED: TRAMADOL HCL 50 MG TABLET PO ONE (03:00)
--- NOTE | 2019-11-12 03:26 | PDOC H&P ---
History of Present Illness Admission Date/PCP: 11/11/19 23:42 Patient complains of: Left leg pain History of Present Illness: RAÚL POPE is a 33 year old female with a past medical history of morbid obesity, venous stasis status post skin graft, chronic leg ulcer and recurrent cellulitis. She presents with 3 days of worsening pain swelling and erythema de veloping a fever of 103.1 she is prompted to seek evaluation emergency department where she is found to have leukocytosis with bandemia. She started on empiric antibiotics and referred to the hospitalist for admission. Past Medical History Cardiac Medical History: Reports: Hypertension Denies: Coronary Artery Disease, Myocardial Infarction Pulmonary Medical History: Reports: Asthma, Bronchitis, Pneumonia - as a child Denies: Chronic Obstructive Pulmonary Disease (COPD) Neurological Medical History: Denies: Seizures Musculoskeltal Medical History: Denies: Arthritis Psychiatric Medical History: Reports: Depression Hematology: Denies: Anemia Past Surgical History Past Surgical History: Reports: Cholecystectomy, Orthopedic Surgery - left lower leg Social History Information Source: Patient, [facility] Records Lives with: Family Smoking Status: Former Smoker Cigarettes Packs Per Day: 1 Electronic Cigarette use?: No Number of Years Smokin Last Time Smoked: 1 year ago Frequency of Alcohol Use: None Hx Recreational Drug Use: No Drugs: None Hx Prescription Drug Abuse: No - Advance Directive Resuscitation Status: Full Code Family History Family History: Hypertension Parental Family History Reviewed: Yes Children Family History Reviewed: Yes Sibling(s) Family History Reviewed.: Yes Medication/Allergy Home Medications: Amlodipine Besylate [Norvasc 10 mg Tablet] 10 mg PO DAILY #30 tablet 01/28/19 Albuterol Sulfate [Ventolin 0.083% Neb 2.5 mg/3 mL Ampul] 1 vial NEB Q4 #1 unit 09/08/19 Methylprednisolone [Medrol Dosepack (4 mg/Tab) 21 Tab/Dosepak] 4 mg PO ASDIR PRN #21 tab.ds.pk 09/08/19 Allergies/Adverse Reactions: ibuprofen [From Motrin] Allergy (Mild, Verified 01/27/19 08:28) Review of Systems Constitutional: ABSENT: chills, fever(s), headache(s), weight gain, weight loss Eyes: ABSENT: visual disturbances Ears: ABSENT: hearing changes Cardiovascular: ABSENT: chest pain, dyspnea on exertion, edema, orthropnea, palpitations Respiratory: ABSENT: cough, hemoptysis Gastrointestinal: ABSENT: abdominal pain, constipation, diarrhea, hematemesis, hematochezia, nausea, vomiting Genitourinary: ABSENT: dysuria, hematuria Musculoskeletal: ABSENT: joint swelling Integumentary: ABSENT: rash, wounds Neurological: ABSENT: abnormal gait, abnormal speech, confusion, dizziness, focal weakness, syncope Psychiatric: ABSENT: anxiety, depression, homidical ideation, suicidal ideation Endocrine: ABSENT: cold intolerance, heat intolerance, polydipsia, polyuria Hematologic/Lymphatic: ABSENT: easy bleeding, easy bruising Physical Exam Vital Signs: Temp Pulse Resp BP Pulse Ox 102.5 F H 142 H 18 173/118 H 96 11/12/19 01:43 11/12/19 00:47 11/12/19 00:47 11/12/19 00:47 11/12/19 00:47 Intake & Output 11/10/19 11/11/19 11/12/19 11:59 11:59 11:59 Intake Total 1999 Balance 1999 Weight 174.6 kg General appearance: PRESENT: cooperative, mild distress, morbidly obese Head exam: PRESENT: atraumatic, normocephalic Eye exam: PRESENT: conjunctiva pink, EOMI, PERRLA. ABSENT: scleral icterus Ear exam: PRESENT: normal external ear exam Mouth exam: PRESENT: moist, tongue midline Neck exam: ABSENT: carotid bruit, JVD, lymphadenopathy, thyromegaly Respiratory exam: PRESENT: clear to auscultation roxanne. ABSENT: rales, rhonchi, wheezes Cardiovascular exam: PRESENT: RRR. ABSENT: diastolic murmur, rubs, systolic m urmur Pulses: PRESENT: normal dorsalis pedis pul Vascular exam: PRESENT: normal capillary refill GI/Abdominal exam: PRESENT: normal bowel sounds, soft. ABSENT: distended, guarding, mass, organolmegaly, rebound, tenderness Rectal exam: PRESENT: deferred Extremities exam: PRESENT: tenderness, +2 edema, other - Left leg with +2 edema, circumferential erythema, 6 x 8 cm ulcer with malodorous discharge. ABSENT: joint swelling Neurological exam: PRESENT: alert, awake, oriented to person, oriented to place, oriented to time, oriented to situation, CN II-XII grossly intact. ABSENT: motor sensory deficit Psychiatric exam: PRESENT: appropriate affect, normal mood. ABSENT: homicidal ideation, suicidal ideation Skin exam: PRESENT: erythema, skin tears, other - Left leg with +2 edema, circumferential erythema, 6 x 8 cm ulcer with malodorous discharge. ABSENT: dry, intact Results Laboratory Results: 11/11/19 20:47 11/11/19 20:47 11/11/19 11/11/19 11/11/19 20:47 20:47 20:47 WBC 14.1 H RBC 4.96 Hgb 13.8 Hct 40.6 MCV 82 MCH 27.8 MCHC 34.0 RDW 16.1 H Plt Count 305 Seg Neutrophils % Not Reportable VBG pH 7.38 VBG pCO2 49.5 VBG HCO3 28.6 VBG Base Excess 2.5 Sodium 134.0 L Potassium 4.1 Chloride 99 Carbon Dioxide 28 Anion Gap 7 BUN 13 Creatinine 0.86 Est GFR ( Amer) > 60 Glucose 104 Lactic Acid Calcium 8.7 Total Bilirubin 0.7 AST 20 Alkaline Phosphatase 91 Total Protein 7.0 Albumin 3.9 TSH 11/11/19 11/11/19 20:47 20:47 WBC RBC Hgb Hct MCV MCH MCHC RDW Plt Count Seg Neutrophils % VBG pH VBG pCO2 VBG HCO3 VBG Base Excess Sodium Potassium Chloride Carbon Dioxide Anion Gap BUN Creatinine Est GFR ( Amer) Glucose Lactic Acid 0.8 Calcium Total Bilirubin AST Alkaline Phosphatase Total Protein Albumin TSH 1.53 Impressions: Tibia/Fibula X-Ray 11/11/19 21:40 IMPRESSION: Diffuse soft tissue swelling about the left lower leg with focal soft tissue defect about its mid aspect anteriorly, suspicious for soft tissue ulceration. No underlying acute osseous anomaly. copyright 2010 [employer]- All Rights Reserved Assessment and Plan - Diagnosis (1) Cellulitis of left anterior lower leg Is this a current diagnosis for this admission?: Yes Plan: Complicated by morbid obesity, venous stasis, former skin graft, bandemia and poverty. Medical floor admission, empiric antibiotics, follow-up CBC, blood culture and surgical consult for outpatient wound care. (2) Sepsis Qualifiers: Sepsis type: sepsis due to unspecified organism Sepsis acute organ dysfunction status: unspecified Qualified Code(s): A41.9 - Sepsis, unspecified organism Is this a current diagnosis for this admission?: Yes Plan: Secondary to #1, complicated by bandemia. empiric antibiotics, IV fluid challenge, follow-up CBC and blood culture (3) HTN (hypertension) Qualifiers: Hypertension type: essential hypertension Qualified Code(s): I10 - Essential (primary) hypertension Is this a current diagnosis for this admission?: Yes Plan: CARLITO inhibitor (4) Morbid obesity with BMI of 50.0-59.9, adult Is this a current diagnosis for this admission?: Yes Plan: Morbid obesity will evaluate for metabolic cause with evaluation of thyroid function and dietitian consultation - Time Time Spent with patient: 25-34 minutes - Inpatient Certification Medical Necessity: Need Close Monitoring Due to Risk of Patient Decompensation
[2019-11-12 03:47] LABS: HEMATOCRIT 39.3 % (36.0-47.0); HEMOGLOBIN 13.5 g/dL (12.0-15.5); MEAN CORPUSCULAR HEMOGLOBIN 27.8 pg (27.0-33.4); MEAN CORPUSCULAR HGB CONC 34.3 g/dL (32.0-36.0); MEAN CORPUSCULAR VOLUME 81 fl (80-97); PLATELET COUNT 251 10^3/uL (150-450); RED BLOOD COUNT 4.86 10^6/uL (3.72-5.28); WHITE BLOOD COUNT 14.7 10^3/uL (4.0-10.5)
[2019-11-12 04:06] LABS: ANION GAP 9 (5-19); BLOOD UREA NITROGEN 12 mg/dL (7-20); CALCIUM 8.4 mg/dL (8.4-10.2); CARBON DIOXIDE 25 mmol/L (22-30); CHLORIDE 100 mmol/L (98-107); GLUCOSE 131 mg/dL (75-110); POTASSIUM 3.8 mmol/L (3.6-5.0)
[2019-11-12 04:08] LABS: ABSOLUTE LYMPHOCYTES# (MANUAL) 0.7 10^3/uL (0.5-4.7); ABSOLUTE MONOCYTES # (MANUAL) 0.6 10^3/uL (0.1-1.4); ANISOCYTOSIS SLIGHT; BAND NEUTROPHILS % (MANUAL) 1 % (3-5); BASOPHILS % (MANUAL) 0 % (0-2); EOSINOPHILS % (MANUAL) 0 % (0-6); LYMPHOCYTES % (MANUAL) 5 % (13-45); MONOCYTES % (MANUAL) 4 % (3-13); PLATELET COMMENT ADEQUATE; SEGMENTED NEUTROPHILS % (MAN) 90 % (42-78); TOTAL CELLS COUNTED 100
[2019-11-12] MEDS: HEPARIN SOD (PORCINE) 5,000 UNIT/ML 1 ML VIAL SUBCUT SCH ×3 (05:52→21:06)
[2019-11-12] MEDS: DOCUSATE SODIUM 100 MG CAPSULE PO SCH ×2 (09:41→18:56)
--- NOTE | 2019-11-12 10:16 | PDOC CONSULTATION ---
Consultation Consult Date: 11/12/19 Provider Consulted: EFRA FLORES History of Present Illness Admission Date/PCP: 11/11/19 23:42 Patient complains of: Left leg redness and fever History of Present Illness: RAÚL POPE is a 33 year old female with several year history of poorly healing left leg wound status post trauma. The wound has been treated with the split-thickness skin graft in the past. It apparently had healed but always had a residual discoloration anteriorly at the left lower leg. Over the past several months however she has developed increased redness and this discolor ation area as well as ulceration centrally with some serous drainage. She noted in the last several days fever along with spreading redness. Patient has not had any medical care in the past several months. She has been self-medicating with ointments at home. She has a history of peripheral vascular disease and had a stent placement in her left leg several years ago. She denies any claudication symptoms. She does have a history of cigarette smoking in the past but has quit for at least a year. No history of diabetes. Past Medical History Cardiac Medical History: Reports: Hypertension Denies: Coronary Artery Disease, Myocardial Infarction Pulmonary Medical History: Reports: Asthma, Bronchitis, Pneumonia - as a child Denies: Chronic Obstructive Pulmonary Disease (COPD) Neurological Medical History: Denies: Seizures Musculoskeltal Medical History: Denies: Arthritis Psychiatric Medical History: Reports: Depression Hematology: Denies: Anemia Past Surgical History Past Surgical History: Reports: Cholecystectomy, Orthopedic Surgery - left lower leg Social History Lives with: Family Smoking Status: Former Smoker Cigarettes Packs Per Day: 1 Electronic Cigarette use?: No Number of Years Smokin Last Time Smoked: 1 year ago Frequency of Alcohol Use: None Hx Recreational Drug Use: No Drugs: None Hx Prescription Drug Abuse: No - Advance Directive Resuscitation Status: Full Code Family History Family History: Hypertension Parental Family History Reviewed: Yes Children Family History Reviewed: Yes Sibling(s) Family History Reviewed.: Yes Medication/Allergy Home Medications: Albuterol Sulfate [Ventolin Hfa 8 gm Mdi] 2 puff IH Q6HP PRN 11/12/19 Allergies/Adverse Reactions: ibuprofen [From Motrin] Allergy (Mild, Verified 01/27/19 08:28) Review of Systems All systems: reviewed and no additional remarkable complaints except as stated Constitutional: PRESENT: as per HPI Musculoskeletal: PRESENT: as per HPI Physical Exam Vital Signs: Temp Pulse Resp BP Pulse Ox 100.2 F 101 H 18 124/61 95 11/12/19 08:48 11/12/19 08:48 11/12/19 08:48 11/12/19 08:48 11/12/19 08:48 Intake & Output 11/11/19 11/12/19 11/13/19 06:59 06:59 06:59 Intake Total 2500 Balance 2500 Weight 174.6 kg General appearance: PRESENT: no acute distress, cooperative Respiratory exam: PRESENT: clear to auscultation roxanne Cardiovascular exam: PRESENT: RRR GI/Abdominal exam: PRESENT: other - Soft, nondistended, nontender to palpation. Extremities exam: PRESENT: other - Left lower leg with mild diffuse edema. Beefy red discoloration at the left lower leg anteriorly with a central partial thickness ulcer that appears clean with no underlying fluctuance and no black eschar although there is some fibrinous exudate at the base. There is erythema beyond the periphery of the beefy red discoloration area. And there is some diffuse tenderness. The left foot is warm but I am unable to palpate pulses. No lesions seen on the right leg. Results Laboratory Results: 11/12/19 03:37 11/12/19 03:37 11/11/19 11/11/19 11/11/19 20:47 20:47 20:47 WBC 14.1 H RBC 4.96 Hgb 13.8 Hct 40.6 MCV 82 MCH 27.8 MCHC 34.0 RDW 16.1 H Plt Count 305 Seg Neutrophils % Not Reportable VBG pH 7.38 VBG pCO2 49.5 VBG HCO3 28.6 VBG Base Excess 2.5 Sodium 134.0 L Potassium 4.1 Chloride 99 Carbon Dioxide 28 Anion Gap 7 BUN 13 Creatinine 0.86 Est GFR ( Amer) > 60 Glucose 104 Lactic Acid Calcium 8.7 Total Bilirubin 0.7 AST 20 Alkaline Phosphatase 91 Total Protein 7.0 Albumin 3.9 TSH 11/11/19 11/11/19 11/12/19 20:47 20:47 03:37 WBC 14.7 H RBC 4.86 Hgb 13.5 Hct 39.3 MCV 81 MCH 27.8 MCHC 34.3 RDW 16.0 H Plt Count 251 Seg Neutrophils % Not Reportable VBG pH VBG pCO2 VBG HCO3 VBG Base Excess Sodium Potassium Chloride Carbon Dioxide Anion Gap BUN Creatinine Est GFR ( Amer) Glucose Lactic Acid 0.8 Calcium Total Bilirubin AST Alkaline Phosphatase Total Protein Albumin TSH 1.53 11/12/19 11/12/19 03:37 03:37 WBC RBC Hgb Hct MCV MCH MCHC RDW Plt Count Seg Neutrophils % VBG pH VBG pCO2 VBG HCO3 VBG Base Excess Sodium 133.5 L Potassium 3.8 Chloride 100 Carbon Dioxide 25 Anion Gap 9 BUN 12 Creatinine 0.95 Est GFR ( Amer) > 60 Glucose 131 H Lactic Acid 1.3 Calcium 8.4 Total Bilirubin AST Alkaline Phosphatase Total Protein Albumin TSH Impressions: Tibia/Fibula X-Ray 11/11/19 21:40 IMPRESSION: Diffuse soft tissue swelling about the left lower leg with focal soft tissue defect about its mid aspect anteriorly, suspicious for soft tissue ulceration. No underlying acute osseous anomaly. copyright 2011 [employer]- All Rights Reserved Assessment & Plan - Diagnosis (1) Cellulitis of left anterior lower leg Is this a current diagnosis for this admission?: Yes Plan: Along with central partial-thickness ulceration. Will obtain vascular studies to rule out DVT as well as evaluate arterial flow to the left leg. In regards to the partial thickness ulceration, will reevaluate tomorrow for possible debridement but at this time it appears very clean with no underlying fluctuance and no obvious necrotic tissue. Will treat with antibiotics and leg elevation and dressing changes for now.
--- NOTE | 2019-11-12 11:45 | PDOC PROGRESS REPORT ---
Subjective Subjective:: Patient admitted by Dr. Swenson late last night for left lower extremity cellulitis. Started on vancomycin/Zosyn. Patient states she is feeling better today and her fevers seem to have stopped for the time being. She does have some pain in her left lower extremity as would be expected with this large sized wound. He has no other specific complaints besides chronic lymphedema and wound pain. Reason For Visit: LEG CELLULITIS/MORBID OBESITY Physical Exam Vital Signs: Temp Pulse Resp BP Pulse Ox 100.2 F 101 H 18 124/61 95 11/12/19 08:48 11/12/19 08:48 11/12/19 08:48 11/12/19 08:48 11/12/19 08:48 Intake & Output 11/11/19 11/12/19 11/13/19 06:59 06:59 06:59 Intake Total 2500 Balance 2500 Weight 174.6 kg General appearance: PRESENT: cooperative, morbidly obese Head exam: PRESENT: atraumatic, normocephalic Eye exam: PRESENT: conjunctiva pink Mouth exam: PRESENT: moist Respiratory exam: PRESENT: clear to auscultation roxanne. ABSENT: rales, rhonchi, wheezes Cardiovascular exam: PRESENT: RRR. ABSENT: diastolic murmur, rubs, systolic murmur GI/Abdominal exam: PRESENT: normal bowel sounds, soft. ABSENT: distended, guarding, mass, organolmegaly, rebound, tenderness Extremities exam: PRESENT: pedal edema, +1 edema, other - Left lower extremity shows lymphedema and large approximately 4 cm in diameter crater-like anterior corcoran wound that does not have any significant drainage Neurological exam: PRESENT: alert, awake, oriented to person, oriented to place, oriented to time, oriented to situation Skin exam: PRESENT: dry, warm Results Laboratory Results: 11/12/19 03:37 11/12/19 03:37 11/11/19 11/11/19 11/11/19 20:47 20:47 20:47 WBC 14.1 H RBC 4.96 Hgb 13.8 Hct 40.6 MCV 82 MCH 27.8 MCHC 34.0 RDW 16.1 H Plt Count 305 Seg Neutrophils % Not Reportable VBG pH 7.38 VBG pCO2 49.5 VBG HCO3 28.6 VBG Base Excess 2.5 Sodium 134.0 L Potassium 4.1 Chloride 99 Carbon Dioxide 28 Anion Gap 7 BUN 13 Creatinine 0.86 Est GFR ( Amer) > 60 Glucose 104 Lactic Acid Calcium 8.7 Total Bilirubin 0.7 AST 20 Alkaline Phosphatase 91 Total Protein 7.0 Albumin 3.9 TSH 11/11/19 11/11/19 11/12/19 20:47 20:47 03:37 WBC 14.7 H RBC 4.86 Hgb 13.5 Hct 39.3 MCV 81 MCH 27.8 MCHC 34.3 RDW 16.0 H Plt Count 251 Seg Neutrophils % Not Reportable VBG pH VBG pCO2 VBG HCO3 VBG Base Excess Sodium Potassium Chloride Carbon Dioxide Anion Gap BUN Creatinine Est GFR ( Amer) Glucose Lactic Acid 0.8 Calcium Total Bilirubin AST Alkaline Phosphatase Total Protein Albumin TSH 1.53 11/12/19 11/12/19 03:37 03:37 WBC RBC Hgb Hct MCV MCH MCHC RDW Plt Count Seg Neutrophils % VBG pH VBG pCO2 VBG HCO3 VBG Base Excess Sodium 133.5 L Potassium 3.8 Chloride 100 Carbon Dioxide 25 Anion Gap 9 BUN 12 Creatinine 0.95 Est GFR ( Amer) > 60 Glucose 131 H Lactic Acid 1.3 Calcium 8.4 Total Bilirubin AST Alkaline Phosphatase Total Protein Albumin TSH Impressions: Tibia/Fibula X-Ray 11/11/19 21:40 IMPRESSION: Diffuse soft tissue swelling about the left lower leg with focal soft tissue defect about its mid aspect anteriorly, suspicious for soft tissue ulceration. No underlying acute osseous anomaly. copyright 2010 [employer]- All Rights Reserved Assessment and Plan - Diagnosis (1) Cellulitis of left anterior lower leg Is this a current diagnosis for this admission?: Yes Plan: Complicated by morbid obesity, venous stasis, former skin graft, bandemia and poverty. Medical floor admission Vancomycin/Zosyn on admission Follow-up CBC, blood culture and surgical consult for outpatient wound care. General surgery consulted: May need debridement but this is yet to be determined for certainty, ordered vascular studies Venous and arterial PVL pending (2) Sepsis Qualifiers: Sepsis type: sepsis due to unspecified organism Sepsis acute organ dysfunction status: unspecified Qualified Code(s): A41.9 - Sepsis, unspecified organism Is this a current diagnosis for this admission?: Yes Plan: Due to left lower extremity cellulitis as above Blood cultures Surgical consult IV antibiotics empiric (3) Asthma Qualifiers: Asthma severity: mild Asthma persistence: unspecified Asthma complication type: unspecified Qualified Code(s): J45.909 - Unspecified asthma, uncomplicated Is this a current diagnosis for this admission?: Yes (4) HTN (hypertension) Qualifiers: Hypertension type: essential hypertension Qualified Code(s): I10 - Essential (primary) hypertension Is this a current diagnosis for this admission?: Yes Plan: Continue home medications (5) Hypothyroid Qualifiers: Hypothyroidism type: unspecified Qualified Code(s): E03.9 - Hypothyroidism, unspecified Is this a current diagnosis for this admission?: Yes Plan: Synthroid (6) Morbid obesity with BMI of 50.0-59.9, adult Is this a current diagnosis for this admission?: Yes Plan: Morbid obesity will evaluate for metabolic cause with evaluation of thyroid function and dietitian consultation (7) Fever Qualifiers: Fever type: unspecified Qualified Code(s): R50.9 - Fever, unspecified Is this a current diagnosis for this admission?: Yes (8) Left leg cellulitis Is this a current diagnosis for this admission?: Yes - Time Time Spent with patient: 15-24 minutes Medications reviewed and adjusted accordingly: Yes Anticipated discharge: Home - Inpatient Certification Based on my medical assessment, after consideration of the patient's comorbidities, presenting symptoms, or acuity I expect that the services needed warrant INPATIENT care.: Yes I certify that my determination is in accordance with my understanding of Medicare's requirements for reasonable and necessary INPATIENT services [42 CFR 412.3e].: Yes Medical Necessity: Significant Comorbidiites Make Outpatient Treatment Too Risky, Need Close Monitoring Due to Risk of Patient Decompensation, Need For IV Fluids, Need for IV Antibiotics, Risk of Complication if Not Cared For in Hospital, Risk of Diagnosis Which Will Require Inpatient Eval/Care/Monitoring
--- NOTE | 2019-11-12 13:27 | RADIOLOGY REPORT (SQ) ---
EXAM DESCRIPTION: VENOUS UNILATERAL LOWER IMAGES COMPLETED DATE/TIME: 11/12/2019 11:50 am REASON FOR STUDY: LLE PAIN COMPARISON: 01/26/2019 TECHNIQUE: Dynamic and static narvaez scale and color images acquired of the left leg venous system. Se lected spectral images acquired with additional compression and augmentation maneuvers. The contralat eral common femoral vein and saphenofemoral junction were also imaged. Images stored on PACS. LIMITATIONS: None. FINDINGS: COMMON FEMORAL: Normal phasicity, compression and augmentation. No visualized echogenic ma terial on narvaez scale. No defects on color images. FEMORAL: Normal compression and augmentation. No visualized echogenic material on narvaez scale. No defe cts on color images. POPLITEAL: Normal compression, augmentation. No visualized echogenic material on narvaez scale. No defec ts on color images. CALF VESSELS: Visualized calf vessels are patent. GSV and SSV: Normal compression, augmentation. No visualized echogenic material on narvaez scale. No def ects on color images. ANY DEEP VENOUS INSUFFICIENCY: Not evaluated. ANY EVIDENCE OF POPLITEAL CYST: No. OTHER: Incidental note is made of a prominent inguinal node measured 2.8 x 3.8 cm. This has central fat and is most consistent with reactive lymph node. CONTRALATERAL COMMON FEMORAL VEIN AND SAPHENOFEMORAL JUNCTION: Normal phasicity, compression and augmentation. No visualized echogenic material on narvaez scale. No de fects on color images. IMPRESSION: NO EVIDENCE DVT OR SVT IN THE LEFT LEG. TECHNICAL DOCUMENTATION: JOB ID: [id number] 2010 [employer]- All Rights Reserved Reading location - IP/workstation name: [email or web address]
[2019-11-12] MEDS ORDERED: DEXTROSE 50%-WATER 25 GM/50 ML DISP.SYRIN IV PRN ×2 (13:47)
[2019-11-12] MEDS ORDERED: DEXTROSE 40% GEL 15 GM TUBE PO PRN ×2 (13:47)
[2019-11-12] MEDS ORDERED: GLUCAGON,HUMAN RECOMB 1 MG INJ SUBCUT PRN (13:47)
[2019-11-12] MEDS: VANCOMYCIN HCL 1,250 MG in DEXTROSE 5%-WATER 250 ML IV SCH ×2 (13:56→21:08)
[2019-11-13] MEDS: PIPERACILLIN SODIUM/TAZOBACTAM 4.5 GM in NORMAL SALINE 100 ML IV SCH ×4 (03:35→21:04)
[2019-11-13] MEDS: ACETAMINOPHEN 325 MG TABLET PO PRN (05:32)
[2019-11-13] MEDS: VANCOMYCIN HCL 1,250 MG in DEXTROSE 5%-WATER 250 ML IV SCH ×3 (05:33→21:05)
[2019-11-13] MEDS: HEPARIN SOD (PORCINE) 5,000 UNIT/ML 1 ML VIAL SUBCUT SCH ×3 (05:33→21:09)
[2019-11-13 09:05] LABS: ABSOLUTE LYMPHOCYTES (AUTO) 1.5 10^3/uL (0.5-4.7); ABSOLUTE MONOCYTES (AUTO) 0.5 10^3/uL (0.1-1.4); ABSOLUTE NEUT (AUTO) 3.5 10^3/uL (1.7-8.2); BASOPHILS % (AUTO) 0.4 % (0-2); EOSINOPHILS % (AUTO) 0.4 % (0-6); HEMATOCRIT 37.5 % (36.0-47.0); HEMOGLOBIN 12.6 g/dL (12.0-15.5); MEAN CORPUSCULAR HEMOGLOBIN 27.7 pg (27.0-33.4); MEAN CORPUSCULAR HGB CONC 33.7 g/dL (32.0-36.0); MEAN CORPUSCULAR VOLUME 82 fl (80-97); PLATELET COUNT 210 10^3/uL (150-450); RED BLOOD COUNT 4.55 10^6/uL (3.72-5.28); SEGMENTED NEUTROPHILS % (AUTO) 63.2 % (42-78); TOTAL CELLS COUNTED % (AUTO) 100 %; WHITE BLOOD COUNT 5.5 10^3/uL (4.0-10.5)
[2019-11-13] MEDS: DOCUSATE SODIUM 100 MG CAPSULE PO SCH ×2 (09:14→17:33)
[2019-11-13 09:26] LABS: ALBUMIN 3.3 g/dL (3.5-5.0); ALKALINE PHOSPHATASE 72 U/L (38-126); ANION GAP 5 (5-19); ASPARTATE AMINO TRANSFERASE 34 U/L (14-36); BILIRUBIN,DIRECT 0.1 mg/dL (0.0-0.4); BILIRUBIN,TOTAL 0.5 mg/dL (0.2-1.3); BLOOD UREA NITROGEN 11 mg/dL (7-20); CALCIUM 8.3 mg/dL (8.4-10.2); CARBON DIOXIDE 28 mmol/L (22-30); CHLORIDE 103 mmol/L (98-107); GLUCOSE 116 mg/dL (75-110); POTASSIUM 3.6 mmol/L (3.6-5.0); TOTAL PROTEIN 6.3 g/dL (6.3-8.2)
--- NOTE | 2019-11-13 10:47 | PDOC PROGRESS REPORT ---
Subjective Progress Note for:: 11/13/19 Subjective:: 33 year old female with a past medical history of morbid obesity, venous stasis status post skin graft, chronic leg ulcer and recurrent cellulitis. She presents with 3 days of worsening pain swelling and erythema developing a fever of 103.1 she is prompted to seek evaluation emergency department where she is found to have leukocytosis with bandemia. She started on empiric antibiotics and referred to the hospitalist for admission. 11/13/2019-patient came in with left lower leg cellulitis surgery is following the patient. And is complaining of pain around the wound gentle palpation. Also complaining of headaches. Afebrile. WBC count is 5500 normalized. Reason For Visit: LEG CELLULITIS/MORBID OBESITY Physical Exam Vital Signs: Temp Pulse Resp BP Pulse Ox 98.8 F 95 16 133/82 H 99 11/13/19 08:00 11/13/19 09:37 11/13/19 09:37 11/13/19 08:00 11/13/19 09:37 Intake & Output 11/12/19 11/13/19 11/14/19 06:59 06:59 06:59 Intake Total 2500 2190 Balance 2500 2190 Weight 174.6 kg 181.3 kg General appearance: PRESENT: no acute distress, morbidly obese Head exam: PRESENT: atraumatic Eye exam: PRESENT: PERRLA Ear exam: PRESENT: normal external ear exam Mouth exam: PRESENT: neck supple Neck exam: ABSENT: carotid bruit, JVD, lymphadenopathy, thyromegaly Respiratory exam: PRESENT: decreased breath sounds GI/Abdominal exam: PRESENT: normal bowel sounds, soft. ABSENT: distended, guarding, mass, organolmegaly, rebound, tenderness Rectal exam: PRESENT: deferred Extremities exam: PRESENT: other - No leg swelling with edema present. Beefy red discoloration in the left lower extremity around the wound site. Ulcer is clean without any drainage. Diffuse tenderness around the ulcer on gentle palpation. Neurological exam: PRESENT: alert, awake, oriented to person, oriented to place, oriented to time, oriented to situation, CN II-XII grossly intact. ABSENT: motor sensory deficit Psychiatric exam: PRESENT: appropriate affect, normal mood. ABSENT: homicidal ideation, suicidal ideation Results Laboratory Results: 11/13/19 08:50 11/13/19 08:50 11/13/19 11/13/19 08:50 08:50 WBC 5.5 RBC 4.55 Hgb 12.6 Hct 37.5 MCV 82 MCH 27.7 MCHC 33.7 RDW 16.0 H Plt Count 210 Seg Neutrophils % 63.2 Sodium 136.1 L Potassium 3.6 Chloride 103 Carbon Dioxide 28 Anion Gap 5 BUN 11 Creatinine 0.86 Est GFR ( Amer) > 60 Glucose 116 H Calcium 8.3 L Magnesium 2.2 Total Bilirubin 0.5 AST 34 Alkaline Phosphatase 72 Total Protein 6.3 Albumin 3.3 L Impressions: Tibia/Fibula X-Ray 11/11/19 21:40 IMPRESSION: Diffuse soft tissue swelling about the left lower leg with focal soft tissue defect about its mid aspect anteriorly, suspicious for soft tissue ulceration. No underlying acute osseous anomaly. copyright 2010 [employer]- All Rights Reserved Venous Doppler Study 11/12/19 00:00 IMPRESSION: NO EVIDENCE DVT OR SVT IN THE LEFT LEG. Assessment and Plan - Diagnosis (1) Cellulitis of left anterior lower leg Is this a current diagnosis for this admission?: Yes Plan: Complicated by morbid obesity, venous stasis, former skin graft, bandemia and poverty. Medical floor admission Vancomycin/Zosyn on admission Follow-up CBC, blood culture and surgical consult for outpatient wound care. General surgery consulted: May need debridement but this is yet to be det ermined for certainty, ordered vascular studies Venous and arterial PVL pending 11/13/2019-surgery on board. Patient is on vancomycin and Zosyn. Redness is improving. Venous Doppler is negative. Arterial Doppler is pending. Ulcers are negative and wound cultures showing gram-negative rods with the skin kali. (2) Sepsis Qualifiers: Sepsis type: sepsis due to unspecified organism Sepsis acute organ dysfunction status: unspecified Qualified Code(s): A41.9 - Sepsis, unspecified organism Is this a current diagnosis for this admission?: Yes Plan: Due to left lower extremity cellulitis as above Blood cultures Surgical consult IV antibiotics empiric 11/13/2019-blood cultures are negative, wound culture is growing skin kali with negative rods. On vancomycin and Zosyn. Surgery on board.Doppler is negative waiting for the arterial Doppler studies. (3) HTN (hypertension) Qualifiers: Hypertension type: essential hypertension Qualified Code(s): I10 - Essentia l (primary) hypertension Is this a current diagnosis for this admission?: No Plan: Continue home medications 11/13/2019-patient has history of chronic essential hypertension blood pressure today is 124/78. Plan is to continue the present management. (4) Morbid obesity with BMI of 50.0-59.9, adult Is this a current diagnosis for this admission?: Yes Plan: Morbid obesity will evaluate for metabolic cause with evaluation of thyroid function and dietitian consultation
--- NOTE | 2019-11-13 12:00 | PDOC PROGRESS REPORT ---
Subjective Progress Note for:: 11/13/19 Subjective:: no complaints Reason For Visit: LEG CELLULITIS/MORBID OBESITY Physical Exam Vital Signs: Temp Pulse Resp BP Pulse Ox 98.8 F 95 16 133/82 H 99 11/13/19 08:00 11/13/19 09:37 11/13/19 09:37 11/13/19 08:00 11/13/19 09:37 Intake & Output 11/12/19 11/13/19 11/14/19 06:59 06:59 06:59 Intake Total 2500 2190 Balance 2500 2190 Weight 174.6 kg 181.3 kg Extremities exam: PRESENT: other - Still with erythema however lower leg but not spreading. Ulceration is partial and appears clean. Results Laboratory Results: 11/13/19 08:50 11/13/19 08:50 11/13/19 11/13/19 08:50 08:50 WBC 5.5 RBC 4.55 Hgb 12.6 Hct 37.5 MCV 82 MCH 27.7 MCHC 33.7 RDW 16.0 H Plt Count 210 Seg Neutrophils % 63.2 Sodium 136.1 L Potassium 3.6 Chloride 103 Carbon Dioxide 28 Anion Gap 5 BUN 11 Creatinine 0.86 Est GFR ( Amer) > 60 Glucose 116 H Calcium 8.3 L Magnesium 2.2 Total Bilirubin 0.5 AST 34 Alkaline Phosphatase 72 Total Protein 6.3 Albumin 3.3 L 11/11/19 22:11 Leg - Left Cellulitis Gram Stain - Final Impressions: Tibia/Fibula X-Ray 11/11/19 21:40 IMPRESSION: Diffuse soft tissue swelling about the left lower leg with focal soft tissue defect about its mid aspect anteriorly, suspicious for soft tissue ulceration. No underlying acute osseous anomaly. copyright 2011 [employer]- All Rights Reserved Venous Doppler Study 11/12/19 00:00 IMPRESSION: NO EVIDENCE DVT OR SVT IN THE LEFT LEG. Assessment & Plan - Diagnosis (1) Cellulitis of left anterior lower leg Is this a current diagnosis for this admission?: Yes Plan: Continue antibiotics. May discharge patient home on p.o. antibiotics and wound care clinic follow-up when her erythema has markedly improved. Santyl ointment to the ulcer wound. I have discussed her case with social contact worker who will try to get her some financial help so she can have follow-up at the wound care clinic.
[2019-11-13] MEDS ORDERED: BUTALB/ACETAMINOPHEN/CAFFEINE 1 TAB EACH PO PRN (12:15)
[2019-11-13 14:25] LABS: VANCOMYCIN,TROUGH 8.9 ug/mL (5.0-20.0)
[2019-11-14] MEDS: PIPERACILLIN SODIUM/TAZOBACTAM 4.5 GM in NORMAL SALINE 100 ML IV SCH ×4 (02:44→21:30)
[2019-11-14 05:50] LABS: ABSOLUTE EOSINOPHILS # (AUTO) 0.1 10^3/uL (0.0-0.6); ABSOLUTE LYMPHOCYTES (AUTO) 2.1 10^3/uL (0.5-4.7); ABSOLUTE MONOCYTES (AUTO) 0.8 10^3/uL (0.1-1.4); ABSOLUTE NEUT (AUTO) 3.3 10^3/uL (1.7-8.2); BASOPHILS % (AUTO) 0.3 % (0-2); EOSINOPHILS % (AUTO) 1.4 % (0-6); HEMATOCRIT 36.2 % (36.0-47.0); HEMOGLOBIN 12.4 g/dL (12.0-15.5); LYMPHOCYTES % (AUTO) 33.1 % (13-45); MEAN CORPUSCULAR HEMOGLOBIN 27.7 pg (27.0-33.4); MEAN CORPUSCULAR HGB CONC 34.2 g/dL (32.0-36.0); MEAN CORPUSCULAR VOLUME 81 fl (80-97); MONOCYTES % (AUTO) 12.7 % (3-13); PLATELET COUNT 229 10^3/uL (150-450); RED BLOOD COUNT 4.47 10^6/uL (3.72-5.28); RED CELL DISTRIBUTION WIDTH 16.1 % (11.5-14.0); SEGMENTED NEUTROPHILS % (AUTO) 52.5 % (42-78); TOTAL CELLS COUNTED % (AUTO) 100 %; WHITE BLOOD COUNT 6.3 10^3/uL (4.0-10.5)
[2019-11-14] MEDS: HEPARIN SOD (PORCINE) 5,000 UNIT/ML 1 ML VIAL SUBCUT SCH ×3 (05:58→22:00)
[2019-11-14] MEDS: VANCOMYCIN HCL 1,250 MG in DEXTROSE 5%-WATER 250 ML IV SCH ×3 (05:59→22:00)
[2019-11-14 06:13] LABS: ALBUMIN 3.2 g/dL (3.5-5.0); ALKALINE PHOSPHATASE 65 U/L (38-126); ANION GAP 6 (5-19); ASPARTATE AMINO TRANSFERASE 26 U/L (14-36); BILIRUBIN,TOTAL 0.4 mg/dL (0.2-1.3); BLOOD UREA NITROGEN 12 mg/dL (7-20); CALCIUM 8.5 mg/dL (8.4-10.2); CARBON DIOXIDE 29 mmol/L (22-30); CHLORIDE 102 mmol/L (98-107); GLUCOSE 124 mg/dL (75-110); TOTAL PROTEIN 6.3 g/dL (6.3-8.2)
[2019-11-14] MEDS: DOCUSATE SODIUM 100 MG CAPSULE PO SCH ×2 (10:24→17:02)
--- NOTE | 2019-11-14 18:34 | PDOC PROGRESS REPORT ---
Subjective Progress Note for:: 11/14/19 Subjective:: 11/12/[address] Swenson for left lower extremity cellulitis. Started on vancomycin/Zosyn. Patient states she is feeling better today and her fevers seem to have stopped for the time being. She does have some pain in her left lower extremity as would be expected with this large sized wound. He has no other specific complaints besides chronic lymphedema and wound pain. 11/14/2019 Patient seems to be doing better today and erythema is receding a bit behind the drawn outline outside of her wound. Her wound has a small amount of yellow material along wound which is normal for the healing process. It is mildly tender and seems to be healing rather slowly. I recommended that the patient follow-up with plastic surgery at [place] or [facility] as I expect she may need further skin grafts in the future. She is continued on IV antibiotics and general surgery stated she can probably be discharged once the erythema improves more. Patient has no new complaints today. Reason For Visit: LEG CELLULITIS/MORBID OBESITY Physical Exam Vital Signs: Temp Pulse Resp BP Pulse Ox 98.4 F 84 18 151/81 H 98 11/14/19 16:00 11/14/19 16:00 11/14/19 16:00 11/14/19 16:00 11/14/19 16:00 Intake & Output 11/13/19 11/14/19 11/15/19 06:59 06:59 06:59 Intake Total 2190 3130 1300 Output Total 4 Balance 2190 3126 1300 Weight 181.3 kg 100.9 kg General appearance: PRESENT: no acute distress, morbidly obese, well-developed, well-nourished Head exam: PRESENT: atraumatic, normocephalic Eye exam: PRESENT: conjunctiva pink. ABSENT: scleral icterus Mouth exam: PRESENT: moist Respiratory exam: PRESENT: clear to auscultation roxanne. ABSENT: rales, rhonchi, wheezes Cardiovascular exam: PRESENT: RRR. ABSENT: diastolic murmur, rubs, systolic murmur GI/Abdominal exam: PRESENT: normal bowel sounds, soft. ABSENT: distended, guarding, mass, organolmegaly, rebound, tenderness Musculoskeletal exam: PRESENT: ambulatory Neurological exam: PRESENT: alert, awake, oriented to person, oriented to place, oriented to time, oriented to situation Skin exam: PRESENT: dry, warm, other - Large anterior corcoran wound appears to be healing very slowly, erythema receding behind the drawn border Results Laboratory Results: 11/14/19 05:33 11/14/19 05:33 11/14/19 11/14/19 05:33 05:33 WBC 6.3 RBC 4.47 Hgb 12.4 Hct 36.2 MCV 81 MCH 27.7 MCHC 34.2 RDW 16.1 H Plt Count 229 Seg Neutrophils % 52.5 Sodium 136.9 L Potassium 4.0 Chloride 102 Carbon Dioxide 29 Anion Gap 6 BUN 12 Creatinine 0.92 Est GFR ( Amer) > 60 Glucose 124 H Calcium 8.5 Magnesium 2.2 Total Bilirubin 0.4 AST 26 Alkaline Phosphatase 65 Total Protein 6.3 Albumin 3.2 L 11/11/19 22:11 Leg - Left Cellulitis Gram Stain - Final Impressions: Tibia/Fibula X-Ray 11/11/19 21:40 IMPRESSION: Diffuse soft tissue swelling about the left lower leg with focal soft tissue defect about its mid aspect anteriorly, suspicious for soft tissue ulceration. No underlying acute osseous anomaly. copyright 2011 [employer]- All Rights Reserved Venous Doppler Study 11/12/19 00:00 IMPRESSION: NO EVIDENCE DVT OR SVT IN THE LEFT LEG. Assessment and Plan - Diagnosis (1) Cellulitis of left anterior lower leg Is this a current diagnosis for this admission?: Yes Plan: Complicated by morbid obesity, venous stasis, former skin graft, bandemia and poverty. Medical floor admission Vancomycin/Zosyn on admission Follow-up CBC, blood culture and surgical consult for outpatient wound care. General surgery consulted: May need debridement but this is yet to be det ermined for certainty, ordered vascular studies Venous and arterial PVL showed no DVT or SVT in LLE (2) Sepsis Qualifiers: Sepsis type: sepsis due to unspecified organism Sepsis acute organ dysfunction status: unspecified Qualified Code(s): A41.9 - Sepsis, unspecified organism Is this a current diagnosis for this admission?: Yes (3) Asthma Qualifiers: Asthma severity: mild Asthma persistence: unspecified Asthma complication type: unspecified Qualified Code(s): J45.909 - Unspecified asthma, uncomplicated Is this a current diagnosis for this admission?: Yes (4) HTN (hypertension) Qualifiers: Hypertension type: essential hypertension Qualified Code(s): I10 - Essential (primary) hypertension Is this a current diagnosis for this admission?: No (5) Hypothyroid Qualifiers: Hypothyroidism type: unspecified Qualified Code(s): E03.9 - Hypothyroidism, unspecified Is this a current diagnosis for this admission?: Yes (6) Morbid obesity with BMI of 50.0-59.9, adult Is this a current diagnosis for this admission?: Yes (7) Fever Qualifiers: Fever type: unspecified Qualified Code(s): R50.9 - Fever, unspecified Is this a current diagnosis for this admission?: Yes (8) Left leg cellulitis Is this a current diagnosis for this admission?: Yes - Time Time Spent with patient: 15-24 minutes Anticipated discharge: Home Within: within 48 hours - Inpatient Certification Based on my medical assessment, after consideration of the patient's comorbidities, presenting symptoms, or acuity I expect that the services needed warrant INPATIENT care.: Yes I certify that my determination is in accordance with my understanding of Medicare's requirements for reasonable and necessary INPATIENT services [42 CFR 412.3e].: Yes Medical Necessity: Significant Comorbidiites Make Outpatient Treatment Too Risky, Need Close Monitoring Due to Risk of Patient Decompensation, Need for IV Antibiotics, Risk of Complication if Not Cared For in Hospital, Risk of Diagnosis Which Will Require Inpatient Eval/Care/Monitoring
[2019-11-15] MEDS: PIPERACILLIN SODIUM/TAZOBACTAM 4.5 GM in NORMAL SALINE 100 ML IV SCH ×2 (02:45→10:16)
[2019-11-15] MEDS: HEPARIN SOD (PORCINE) 5,000 UNIT/ML 1 ML VIAL SUBCUT SCH (05:16)
[2019-11-15] MEDS: VANCOMYCIN HCL 1,250 MG in DEXTROSE 5%-WATER 250 ML IV SCH (05:16)
[2019-11-15] MEDS: DOCUSATE SODIUM 100 MG CAPSULE PO SCH (09:37)
--- NOTE | 2019-11-15 14:06 | PDOC DISCHARGE SUMMARY ---
Impression - Admit/DC Date/PCP Admission Date/Primary Care Provider: 11/11/19 23:42 Discharge Date: 11/15/19 - Discharge Diagnosis (1) Cellulitis of left anterior lower leg Is this a current diagnosis for this admission?: Yes (2) Sepsis Is this a current diagnosis for this admission?: Yes (3) Asthma Is this a current diagnosis for this admission?: Yes (4) HTN (hypertension) Is this a current diagnosis for this admission?: No (5) Hypothyroid Is this a current diagnosis for this admission?: Yes (6) Morbid obesity with BMI of 50.0-59.9, adult Is this a current diagnosis for this admission?: Yes (7) Fever Is this a current diagnosis for this admission?: Yes (8) Left leg cellulitis Is this a current diagnosis for this admission?: Yes - Additional Information Resuscitation Status: Full Code Discharge Diet: Other (Comments) - Vegan Discharge Activity: Activity As Tolerated Referrals: [facility] [Outside] Prescriptions: Amoxicillin/Potassium Clav [Augmentin 875-125 Tablet] 1 tab PO BID 7 Days #14 tab Doxycycline Hyclate [Vibramycin] 100 mg PO BID 7 Days #14 capsule Home Medications: Albuterol Sulfate [Ventolin Hfa 8 gm Mdi] 2 puff IH Q6HP PRN 11/12/19 Amoxicillin/Potassium Clav [Augmentin 875-125 Tablet] 1 tab PO BID 7 Days #14 tab 11/15/19 Doxycycline Hyclate [Vibramycin] 100 mg PO BID 7 Days #14 capsule 11/15/19 History of Present Illiness History of Present Illness: Primary physician: "RAÚL POPE is a 33 year old female with a past medical history of morbid obesity, venous stasis status post skin graft, chronic leg ulcer and recurrent cellulitis. She presents with 3 days of worsening pain swelling and erythema developing a fever of 103.1 she is prompted to seek evaluation emergency department where she is found to have leukocytosis with bandemia. She started on empiric antibiotics and referred to the hospitalist for admission." Hospital Course Hospital Course: Patient managed for recurrent left lower extremity cellulitis and sepsis. Patient initially started on vancomycin/Zosyn, clinically improved and then later transitioned to ciprofloxacin for adequate coverage after severe infection with systemic symptoms. Wound culture grew Pseudomonas, MSSA, group B strep. Patient must follow-up with PCP, plastic surgery, and wound care clinic outpatient. She was counseled on weight loss and recommended to start a vegan diet with appropriate protein and vitamin supplementation. 11/12/[address] Swenson for left lower extremity cellulitis. Started on vancomycin/Zosyn. Patient states she is feeling better today and her fevers seem to have stopped for the time being. She does have some pain in her left lower extremity as would be expected with this large sized wound. He has no other specific complaints besides chronic lymphedema and wound pain. 11/14/2019 Patient seems to be doing better today and erythema is receding a bit behind the drawn outline outside of her wound. Her wound has a small amount of yellow material along wound which is normal for the healing process. It is mildly tender and seems to be healing rather slowly. I recommended that the patient follow-up with plastic surgery at [place] or [facility] as I expect she may need further skin grafts in the future. She is continued on IV antibiotics and general surgery stated she can probably be discharged once the erythema improves more. Patient has no new complaints today. (1) Cellulitis of left anterior lower leg Is this a current diagnosis for this admission?: Yes Plan: Complicated by morbid obesity, venous stasis, former skin graft, bandemia and poverty. Medical floor admission Vancomycin/Zosyn on admission CBC, blood culture negative, wound culture grew Pseudomonas/MSSA/group B strep Surgical consult: No need for surgery, signed off Venous and arterial PVL showed no DVT or SVT in LLE Transition to ciprofloxacin at discharge (2) Sepsis Qualifiers: Sepsis type: sepsis due to unspecified organism Sepsis acute organ dysfunction status: unspecified Qualified Code(s): A41.9 - Sepsis, unspecified organism Is this a current diagnosis for this admission?: Yes (3) Asthma Qualifiers: Asthma severity: mild Asthma persistence: unspecified Asthma complication type: unspecified Qualified Code(s): J45.909 - Unspecified asthma, uncomplicated Is this a current diagnosis for this admission?: Yes (4) HTN (hypertension) Qualifiers: Hypertension type: essential hypertension Qualified Code(s): I10 - Essential (primary) hypertension Is this a current diagnosis for this admission?: No (5) Hypothyroid Qualifiers: Hypothyroidism type: unspecified Qualified Code(s): E03.9 - Hypothyroidism, unspecified Is this a current diagnosis for this admission?: Yes (6) Morbid obesity with BMI of 50.0-59.9, adult Is this a current diagnosis for this admission?: Yes (7) Fever Qualifiers: Fever type: unspecified Qualified Code(s): R50.9 - Fever, unspecified Is this a current diagnosis for this admission?: Yes (8) Left leg cellulitis Is this a current diagnosis for this admission?: Yes Physical Exam Vital Signs: Temp Pulse Resp BP Pulse Ox 98.1 F 82 18 140/97 H 97 11/15/19 11:11 11/15/19 11:11 11/15/19 11:11 11/15/19 11:11 11/15/19 11:11 Intake & Output 11/14/19 11/15/19 11/16/19 06:59 06:59 06:59 Intake Total 3130 3080 100 Output Total 4 Balance 3126 3080 100 Weight 100.9 kg 100.9 kg General appearance: PRESENT: no acute distress, well-developed, well-nourished Head exam: PRESENT: atraumatic, normocephalic Eye exam: PRESENT: conjunctiva pink Mouth exam: PRESENT: moist Respiratory exam: PRESENT: clear to auscultation roxanne. ABSENT: rales, rhonchi, wheezes Cardiovascular exam: PRESENT: RRR. ABSENT: diastolic murmur, rubs, systolic murmur GI/Abdominal exam: PRESENT: normal bowel sounds, soft. ABSENT: distended, guarding, mass, organolmegaly, rebound, tenderness Musculoskeletal exam: PRESENT: ambulatory Neurological exam: PRESENT: alert, awake, oriented to person, oriented to place, oriented to time, oriented to situation Skin exam: PRESENT: dry, warm, other - Large slowly healing left anterior corcoran wound with significantly improved erythema, resolving Results Laboratory Results: WBC 6.3 10^3/uL (4.0-10.5) 11/14/19 05:33 RBC 4.47 10^6/uL (3.72-5.28) 11/14/19 05:33 Hgb 12.4 g/dL (12.0-15.5) 11/14/19 05:33 Hct 36.2 % (36.0-47.0) 11/14/19 05:33 MCV 81 fl (80-97) 11/14/19 05:33 MCH 27.7 pg (27.0-33.4) 11/14/19 05:33 MCHC 34.2 g/dL (32.0-36.0) 11/14/19 05:33 RDW 16.1 % (11.5-14.0) H 11/14/19 05:33 Plt Count 229 10^3/uL (150-450) 11/14/19 05:33 Lymph % (Auto) 33.1 % (13-45) 11/14/19 05:33 [place] % (Auto) 12.7 % (3-13) 11/14/19 05:33 Eos % (Auto) 1.4 % (0-6) 11/14/19 05:33 Baso % (Auto) 0.3 % (0-2) 11/14/19 05:33 Absolute Neuts (auto) 3.3 10^3/uL (1.7-8.2) 11/14/19 05:33 Absolute Lymphs (auto) 2.1 10^3/uL (0.5-4.7) 11/14/19 05:33 Absolute Monos (auto) 0.8 10^3/uL (0.1-1.4) 11/14/19 05:33 Absolute Eos (auto) 0.1 10^3/uL (0.0-0.6) 11/14/19 05:33 Absolute Basos (auto) 0.0 10^3/uL (0.0-0.2) 11/14/19 05:33 Total Counted 100 11/12/19 03:37 Seg Neutrophils % 52.5 % (42-78) 11/14/19 05:33 Seg Neuts % (Manual) 90 % (42-78) H 11/12/19 03:37 Band Neutrophils % 1 % (3-5) L 11/12/19 03:37 Lymphocytes % (Manual) 5 % (13-45) L 11/12/19 03:37 Monocytes % (Manual) 4 % (3-13) 11/12/19 03:37 Eosinophils % (Manual) 0 % (0-6) 11/12/19 03:37 Basophils % (Manual) 0 % (0-2) 11/12/19 03:37 Abs Neuts (Manual) 13.4 10^3/uL (1.7-8.2) H 11/12/19 03:37 Abs Lymphs (Manual) 0.7 10^3/uL (0.5-4.7) 11/12/19 03:37 Abs Monocytes (Manual) 0.6 10^3/uL (0.1-1.4) 11/12/19 03:37 Absolute Eos (Manual) 0.0 10^3/uL (0.0-0.6) 11/12/19 03:37 Abs Basophils (Manual) 0.0 10^3/uL (0.0-0.2) 11/12/19 03:37 Platelet Comment ADEQUATE 11/12/19 03:37 Anisocytosis SLIGHT 11/12/19 03:37 PT 14.5 SEC (11.4-15.4) 11/11/19 20:47 INR 1.12 11/11/19 20:47 VBG pH 7.38 (7.30-7.42) 11/11/19 20:47 VBG pCO2 49.5 mmHg (35-63) 11/11/19 20:47 VBG HCO3 28.6 mmol/L (20-32) 11/11/19 20:47 VBG Base Excess 2.5 mmol/L 11/11/19 20:47 Sodium 136.9 mmol/L (137-145) L 11/14/19 05:33 Potassium 4.0 mmol/L (3.6-5.0) 11/14/19 05:33 Chloride 102 mmol/L (98-107) 11/14/19 05:33 Carbon Dioxide 29 mmol/L (22-30) 11/14/19 05:33 Anion Gap 6 (5-19) 11/14/19 05:33 BUN 12 mg/dL (7-20) 11/14/19 05:33 Creatinine 0.92 mg/dL (0.52-1.25) 11/14/19 05:33 Est GFR ( Amer) > 60 (>60) 11/14/19 05:33 Est GFR (MDRD) Non-Af > 60 (>60) 11/14/19 05:33 Glucose 124 mg/dL (75-110) H 11/14/19 05:33 Hemoglobin A1c % 6.0 % (4.7-6.0) 11/11/19 20:47 Lactic Acid 1.3 mmol/L (0.7-2.1) 11/12/19 03:37 Calcium 8.5 mg/dL (8.4-10.2) 11/14/19 05:33 Magnesium 2.2 mg/dL (1.6-2.3) 11/14/19 05:33 Total Bilirubin 0.4 mg/dL (0.2-1.3) 11/14/19 05:33 Direct Bilirubin 0.0 mg/dL (0.0-0.4) 11/14/19 05:33 Neonat Total Bilirubin Not Reportable 11/14/19 05:33 Neonat Direct Bilirubin Not Reportable 11/14/19 05:33 Neonat Indirect Bili Not Reportable 11/14/19 05:33 AST 26 U/L (14-36) 11/14/19 05:33 ALT 28 U/L (<35) 11/14/19 05:33 Alkaline Phosphatase 65 U/L (38-126) 11/14/19 05:33 Total Protein 6.3 g/dL (6.3-8.2) 11/14/19 05:33 Albumin 3.2 g/dL (3.5-5.0) L 11/14/19 05:33 TSH 1.53 uIU/mL (0.47-4.68) 11/11/19 20:47 Time Trough Drawn 1340 11/13/19 13:40 Vancomycin Trough 8.9 ug/mL (5.0-20.0) 11/13/19 13:40 Impressions: Tibia/Fibula X-Ray 11/11/19 21:40 IMPRESSION: Diffuse soft tissue swelling about the left lower leg with focal soft tissue defect about its mid aspect anteriorly, suspicious for soft tissue ulceration. No underlying acute osseous anomaly. copyright 2011 [employer]- All Rights Reserved Venous Doppler Study 11/12/19 00:00 IMPRESSION: NO EVIDENCE DVT OR SVT IN THE LEFT LEG. Plan Time Spent: Greater than 30 Minutes Stroke Is this a Stroke Patient?: No Acute Heart Failure - Is this a Heart Failure Patient?: No
[2019-11-15 14:18] VITALS: BP 173/118
== END 2019-11-15 14:16 | disposition home or self-care (01) | DRG 872 ==
LOC: ER 20:14 → EH 23:42 → 4S 11-12 00:33
PROVIDERS: ADMIT Internal Medicine; ATTEND Internal Medicine
DX: A41.9 Sepsis, unspecified organism (principal); L03.116 Cellulitis of left lower limb; Z68.43 Body mass index [BMI] 50.0-59.9, adult; L97.929 Non-pressure chronic ulcer of unspecified part of left lower leg with unspecified severity; I10 Essential (primary) hypertension; E03.9 Hypothyroidism, unspecified; I87.8 Other specified disorders of veins; B96.5 Pseudomonas (aeruginosa) (mallei) (pseudomallei) as the cause of diseases classified elsewhere; B95.61 Methicillin susceptible Staphylococcus aureus infection as the cause of diseases classified elsewhere; B95.1 Streptococcus, group B, as the cause of diseases classified elsewhere; J45.20 Mild intermittent asthma, uncomplicated; F32.9 Major depressive disorder, single episode, unspecified; E66.01 Morbid (severe) obesity due to excess calories; Z87.891 Personal history of nicotine dependence; Z88.6 Allergy status to analgesic agent; Z79.899 Other long term (current) drug therapy; Z91.81 History of falling; Z82.49 Family history of ischemic heart disease and other diseases of the circulatory system
CPT/HCPCS: 36415; 80048; 80053; 80202; 82565; 82803; 83036; 83605; 83735; 84443; 85025; 85610; 87040; 87070; 87077; 87186; 87205; 93971; 96361; 96365; 96375; 99291; 99292; J1644; J1940; J2543; J3370; J3490; J7030; J7050; J7060